=== PATIENT | male | born 1940 | race Caucasian/White ===

== ENCOUNTER 2024-07-22 10:46 | Outpatient (AMB) | payer OTHER, SELFPAY ==
--- NOTE | 2024-07-22 10:47 | AM.OFFWIN_ITS ---
Intake Vital Signs 07/22/24 10:51 BP 118/74 Blood Pressure Location Rt brachial Position Sitting Pulse 76 Pulse Source Pulse Oximeter Pulse Oximetry (%) 98 Oxygen Delivery Method Room Air Intake Visit Reasons: [employer]ENDANT Pain in rt abdomen radiating to back Intake Note: Patient here for right upper quad pain that has been present for a few weeks ago, he did mention he had a fall but is unsure if its related. 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 Patient states following his TAVR procedure he had a fall at home on July 09. Patient was brought to [facility] emergency department and was observed for approximately 24 hours secondary to a head injury. Patient states he had a chest x-ray with no abnormal findings at that time. On approximately July 11 the patient noted pain in the right upper quadrant of his abdomen. He denies having any fevers, chills, chest pain, shortness of breath, postprandial pain, nausea, vomiting, dark or bloody stools. Patient is not on any blood thinning medications. Patient has been taking one Aleve every evening for the past 3 nights. Patient states that coughing and carrying heavy items makes his pain worse. [facility] Social History (System 09/17/23 @ 12:17 by Tamy Sinclair) Patient Tobacco Use Status: Never used Tobacco Review of Systems Const All systems reviewed & are unremarkable except as noted in HPI and below Eyes Reports no additional complaints ENT Reports no additional complaints Card Reports no additional complaints Resp Reports no additional complaints and Reports pain with cough GI Reports no additional complaints, Reports abdominal pain (RUQ), Denies change in bowel habits, Denies constipation, Denies dyspepsia, Denies heartburn, Denies diarrhea, Denies loose stools and Denies vomiting Reports no additional complaints Musc Reports no additional complaints Skin/Breast Reports system reviewed and no additional complaints, except as documented Neuro Reports no additional complaints Psych Reports no additional complaints Endo Reports no additional complaints Brad/Lymph Reports no additional complaints Aller/Immun Reports no additional complaints Physical Exam Const General: cooperative, healthy appearing, comfortable, no acute distress, well developed, alert, awake and Physically active; No lethargic Nutritional Appearance: well nourished Orientation/consciousness: patient oriented x3 and No lethargic Limitations: no limitations Resp Effort & Inspection: normal respiratory effort, able to speak in complete sentences, no audible wheezes, no cough and no respiratory distress Auscultation: clear to auscultation bilaterally Cardio Rate: regular rate Rhythm: regular rhythm GI Inspection: Yes normal to inspection, Yes abdominal wall ecchymosis (lower abdomen), No Abdominal wall edema, No distended and No visible herniation Palpation (GI): Soft to palpation, Tenderness to palpation present (GI) in the RUQ (mild guarding, no rebound tenderness); not periumbilically and not suprapubicly and no hernias Auscultation: normal bowel sounds Back/Spine/Pelvis Other: No pain to palpation of the sternum or right lateral ribs. Skin General skin exam: no rashes or lesions noted Neuro General: patient oriented x3 Psych Appearance: grossly normal Mental Status: mental status grossly normal Insight: Good insight present (Psych) Judgement: Good judgement present (Psych) Assessment & Plan Assessment & Plan (1) Abdominal muscle pain: Comment: Given this patient's history coupled with his examination there is no clinical concern for cholelithiasis or cholecystitis. Patient's pain is muscular in nature, likely related to his fall on July 09 and no further imaging is warranted at this time. Code(s): M79.18 - Myalgia, other site Plan: Naprosyn b.i.d., methocarbamol TID prn. Patient will follow up with his primary care provider as needed and he has cardiac follow up scheduled in 1 week. Medications: New methocarbamol 750 mg PO Q8H 30 tabs 0RF naproxen (Naprosyn) 500 mg PO BID 20 tabs 0RF Coding Level of Care Code Est Pt Level 3 (83512) Diagnoses Abdominal muscle pain M79.18 Time Spent (min) 25
[2024-07-22 10:51] VITALS: BP 118/74; PULSE 76; O2SAT 98
--- OUTSIDE RECORDS SUMMARY | 2024-07-22 10:53 | XMS_ITS | Continuity of Care Document ---
Author Organization [facility] Address [address] [place] [id number] Care Team Providers Care [employer] Name Role Phone Nish Lin Primary Care Physician ( [phone] Encounter [facility] Date(s): 06/08/24 - 07/08/24 [facility] [address] [place] [id number] Encounter Type: Triage Allergies, Adverse Reactions, Alerts No Known Allergies Immunizations Given and Recorded Vaccine Date Status Refusal Reason FluLaval (oldterm) 1 05/29/09 Given Influenza Inactive (IM) (oldterm) 05/16/08 Given Pneumococcal Vaccine (oldterm) 04/22/06 Given tetanus-diphtheria toxoids (Td) 04/22/06 Given 1Admin Note: given w/o incident INFO SHEET GIVEN Medications Aspirin = 81 mg, By Mouth, Daily, 0 Refills, 04/22/06 2:07:26 PM EDT Start Date: 04/22/06 Status: Ordered Repeat number: 1 atorvastatin 40 mg oral tablet 1 tablet = 40 mg, By Mouth, Daily, 0 Refills, Maintenance, 04/05/24 7:51:00 PM EDT, Partial fill upon patient request if the prescription is for a schedule II opioid drug. Start Date: 04/05/24 Status: Ordered Repeat number: 1 metoprolol 25 mg oral tablet, extended release 25 mg, 1, tablet, By Mouth, Daily, Refills 0, Maintenance, 04/05/24 7:51:00 PM EDT, Partial fill upon patient request if the prescription is for a schedule II opioid drug. Start Date: 04/05/24 Status: Ordered Repeat number: 1 omeprazole 20 mg oral enteric coated capsule 1 capsule = 20 mg, By Mouth, Daily, # 90 tablet, 3 Refills, 05/29/09 10:21:24 AM EDT Start Date: 05/29/09 Stop Date: 05/24/10 Status: Ordered Quantity: 90.0 Unit: tablet Repeat number: 4 Paxil 40 mg oral tablet 40 mg, 1, tablet, By Mouth, Daily, Refills 0, Maintenance, 04/05/24 7:51:00 PM EDT, Partial fill upon patient request if the prescription is for a schedule II opioid drug. Start Date: 04/05/24 Status: Ordered Repeat number: 1 Problem List Condition Confirmation Course Effective Dates Status H ealth Status Informant Anxiety Confirmed Active Gastro-esophageal reflux disease Confirmed Active Glucose intolerance Confirmed 11/19/06 Active Hyperlipidemia Confirmed Active Non-bacterial prostatitis Confirmed Active Obese class I Confirmed Active Aortic stenosis, severe Confirmed Active Tendonitis calcific/bursitis of left shoulder Confirmed Active Vasectomy Confirmed Active Social History Social History Type Response Smoking Status Never (less than 100 in lifetime) entered on: 05/20/24 Sex Sex Representation Male (finding) Patient Care team information Care Team Personnel Name: Roselyn Colbert RN Position: S RN Member Role: Primary Care Nurse Name: Lexx Alcantar RN Position: S RN Member Role: Primary Care Nurse Name: Nish Lin Position: Reference Physician Member Role: PCP Address: [address] [place] [address] Telecom: Name: Elizabeth Julian RN Position: S RN Member Role: Primary Care Nurse Care Team Related Persons Name: SLY SPRINGER Insurance Providers Guarantor name: MARLENA SPRINGER [facility] Information #: 1 Payer: [facility] [employer] Member Number: NA Policy Number: NA Group Number: NA
--- OUTSIDE RECORDS SUMMARY | 2024-07-22 10:53 | XMS_ITS | Continuity of Care Document ---
Author Organization [facility] ter Address [address] [place] [id number]- Care Team Providers Care Drag Down Name Role Phone Nish Lin Primary Care Physician En[place] [facility] [place]): 07/04/24 - 07/05/[address] [address]- Discharge Disposition: A-D/C Home Attending Physician: Salomon Suarez MD Admitting Physician: Salomon Suarez MD Referring Physician: Neftaly Dias MD Encounter Type: Disch IP Allergies, Adverse Reactions, Alerts No Known Allergies [...] left shoulder Confirmed Active Vasectomy Confirmed Active Results Radiology Reports * Exam Date Time Procedure Performing Provider Status 07/05/24 6:19 AM Chest Portable Kwadwo Medrano ( Verified) Notes: (Chest Portable) Reason For Exam: S/P TAVR;Postop RESULT: Chest Portable Examination: Portable chest performed on 07/05/2024. History: Status post tavr. Findings: A frontal view of the chest is submitted in comparison to a prior study dated 07/04/2024. Transvenous pacer has been removed. The cardiac silhouette is within normal limits for size. Aorticvalve is noted. The lungs are clear. The osseous structures are unremarkable. IMPRESSION: There is no acute cardiopulmonary disease. WSN: [id number] Ordering Physician: Milton Bernal Dictated By: Kita Montero MD Dictated Date/Time: 07/05/24 9:26 am Reviewed By: Kita Montero MD Signed By: Kita Montero MD Signed Date/Time: 07/05/24 9:26 am Transcribed By: MARLENY Transcribed Date/Time: 07/05/24 9:23 am * Exam Date Time Procedure Performing Provider Status 07/04/24 10:47 AM Chest Portable Cecilia Webber (Verified) Notes: (Chest Portable) Reason For Exam: S/P TAVR;Postop RESULT: Chest Portable Chest Portable Reason: Postop; S P TAVR; Clinical Question(s): Cardiac Tamponade; COMPARISON: CTA TAVR-06/13/2024. FINDINGS: LINES AND TUBES: Inferior approach temporary pacer wire noted. LUNGS AND PLEURA: Mildly low lung volumes with basilar atelectasis. Lungs are otherwise clear with no consolidation. No pleural effusion. No pneumothorax. HEART, MEDIASTINUM AND KANDIS: Heart is normal in size. Aorta is mildly calcified. Status post TAVR. BONES AND SOFT TISSUES: No acute abnormality. IMPRESSION: Expected postoperative appearance following TAVR. I have personally reviewed the images and I agree with this report. WSN: [id number] Ordering Physician: Milton Bernal Dictated By: Hakan Major MD Dictated Date/Time: 07/04/24 11:26 a Reviewed By: Mykel Amezquita MD, V Signed By: Mykel Amezquita MD, V Signed Date/Time: 07/04/24 11:31 am Transcribed By: MARLENY Transcribed Date/Time: 07/04/24 11:22 am Vital Signs Most recent to oldest [Reference Range]: 1 2 3 Height 170.1 cm (07/05/24 7:36 AM) 170.1 cm (07/05/24 4:44 AM) 170.1 cm (07/05/24 12:09 AM) Weight 87.4 kg (07/05/24 6:28 AM) 87.4 kg (07/05/24 4:52 AM) 86.9 kg (07/04/24 1:21 PM) Oxygen Saturation [94-100 %] 97 % (07/05/24 7:36 AM) 96 % (07/05/24 4:44 AM) 97 % (07/05/24 12:09 AM) Pulse Rate [55-90 bpm] 81 bpm (07/05/24 7:36 AM) 75 bpm (07/05/24 4:44 AM) 75 bpm (07/05/24 12:09 AM) Body Mass Index [18.5-24.99 kg/m2] 30.03 kg/m2 *>HHI* (07/04/24 1:21 PM) 30.03 kg/m2 *>HHI* (07/04/24 1:14 PM) 30.07 kg/m2 *>HHI* (07/04/24 7:00 AM) Blood Pressure [90-138/55-84 mm Hg] 124/57mm Hg (07/05/24 7:36 AM) 109/50mm Hg (07/05/24 4:44 AM) 101/53mm Hg (07/05/24 12:09 AM) Respiratory Rate [16-30 br/min] 18 br/min (07/05/24 7:36 AM) 18 br/min (07/05/24 4:44 AM) 18 br/min (07/05/24 12:09 AM) Temperature [96.8-100.4 DegF] 99.1 DegF (07/05/24 7:36 AM) 99.7 DegF (07/05/24 4:44 AM) 97.4 DegF (07/05/24 12:09 AM) Mode of Delivery (Oxygen) Face shield (07/05/24 7:36 AM) Room air (07/05/24 4:44 AM) Room air (07/05/24 12:09 AM) Blood pressure sites Arm, left (07/05/24 7:36 AM) Arm, left (07/05/24 4:44 AM) Arm, left (07/05/24 12:09 AM) Temperature Route Oral (07/05/24 7:36 AM) Oral (07/05/24 4:44 AM) Oral (07/05/24 12:09 AM) Dry Weight 85.729 kg (07/04/24 1:21 PM) 87 kg (07/04/24 7:00 AM) Weight Obtained Via Bed scale (07/05/24 6:28 AM) Bed scale (07/05/24 4:52 AM) Social History Social History Type Response Smoking Status Never (less than 100 in lifetime) entered on: 05/20/24 Sex Sex Representation Male (finding) Note * José Miguel VARGAS, Desirae Guzman: PERFORM, SIGN, VERIFY Event Display: Cardiac Rehab Note Authored Date: [id number] Patient: MARLENA PALM Age: 83 years Sex: Male : 1940 Associated Diagnoses: None Author: José Miguel VARGAS, Desirae Guzman Pre-exercise Vitals Vital Signs Comment: Reviewed in [facility]. Pre-exercise Physical Examination Neurologic: alert & oriented. Activity Symptoms with Cardiac Rehab Symptoms: No exertional symptoms. Activity Ambulate: independent. Patient Education Education: Family present, Post procedure guidelines. Education topic Teachback comprehension 75% Topic: Role of exercise, Home activity guidelines/limits. Recommendation and Plan Outpatient follow up recommended: [facility]. Cardiac Rehab: Will sign off at this time. * Marlys Collins RN: PERFORM Event Display: Discharge/Transfer Note Hospital Authored Date: [id number] Nursing Discharge Note Entered On: 07/05/2024 10:58 EST Performed On: 07/05/2024 10:58 EST by Marlys Collins RN Nursing Discharge Note 2 Discharge Time : 07/05/2024 10:56 EST Discharge Level of Care at Discharge : Home/Fdc/Foster Care Patient Left Unit Via : Wheelchair Patient Accompanied Off Unit with : Responsible adult DC Instructions Provided & Signed by Pt : Yes Patient Understands D/C Instructions : Yes Patient Instructions Discharge Signed : Yes Did Pt have Specialty Bed or Wound Vac : No Marlys Collins RN - 07/05/2024 10:58 EST * Andreina SANTANA, Mariza Segura: PERFORM, MODIFY Event Display: Discharge/Transfer Note Hospital Authored Date: [id number] Patient: ??MARLENA PALM ? Age:??83 Years?Sex:??Male?:??1940?? Patient Information Discharge Location: Primary Care Physician: Nish Lin Admit Date/Time: 07/04/2024 06:40 Discharge Disposition Discharge Disposition: Home: No Services Discharge Diagnosis Anxiety (F41.9) Hyperlipidemia (E78.5) Obese class I (Z68.30) _ Discharge Medications Aspirin?81?Milligram?By Mouth?Daily Atorvastatin (atorvastatin 40 mg oral tablet)?1?tab(s)?40?Milligram?By Mouth?Daily Metoprolol (metoprolol 25 mg oral tablet, extended release)?25?Milligram?1?tablet?ByMouth?Daily Omeprazole (omeprazole 20 mg oral enteric coated capsule)?1?capsule?20?Milligram?By Mouth?Daily?for 90?Days Paroxetine (Paxil 40 mg oral tablet)?40?Milligram?1?tablet?By Mouth?Daily ? Allergies Allergies ?(Active and Proposed Allergies Only) NKA? (Severity: Unknown severity, Onset: Unknown) ? PCP Follow-Up/Heads-Up Patient is status post TAVR and will need aspirin 81 mg daily indefinitely. ?? Hospital Course Mr. Palm??is an 83-year-old male with a known history of aortic stenosis, who had been developing episodic symptoms of fatigue with exertion, found to have aortic stenosis and is now status post TAVR (07/04/24, Dr. Dias and Dr. Suarez).? Objective ?? PROCEDURE PERFORMED:??Right transfemoral TAVR with a 29 Medtronic Evolut FX plus. SURGEON:??Salomon Suarez MD CO-SURGEON:??Neftaly Dias MD ?? Postoperatively, there are no reports of pain, shortness of breath or palpitations. Patient is eating diet by mouth and independently ambulatory. Incision sites are clean, dry and soft without evidence of hematoma.?? Distal pulses are palpable.? S/P TAVR: EKG, Echocardiogram and CXR have been reviewed.?? Patient has an old left bundle on EKG, will not discharge with Zio monitor. AC: Aspirin ?? Will need follow up for echocardiogram in 30 days,??CBC and BMP in??1 week and will follow up with interventionalist and technology intern.?? Patient will need to contact these offices to make and confirm appointment date and time. ? Vital Signs?? Temperature: 99.1 DegF (07/05/24 07:36:00) Temperature Route: Oral (07/05/24 07:36:00) Pulse Rate: 81 bpm (07/05/24 07:36:00) Heart Rate Monitored: 64 bpm (07/04/24 13:07:38) Respiratory Rate: 18 br/min (07/05/24 07:36:00) Systolic Blood Pressure: 124 mm Hg (07/05/24 07:36:00) Diastolic Blood Pressure: 57 mm Hg (07/05/24 07:36:00) Blood pressure sites: Arm, left (07/05/24 07:36:00) Mean Arterial Pressure: 79 mm Hg (07/05/24 07:36:00) Pulse Pressure: 67 mm Hg (07/05/24 07:36:00) Oxygen Saturation: 97 % (07/05/24 07:36:00) Mode of Delivery (Oxygen): Face shield (07/05/24 07:36:00) Early Warning Score: 3 (07/05/24 07:36:56) ? . Physical Exam PHYSICAL EXAM AT DISCHARGE: Constitutional: Elderly, but well appearing Cardiovascular: S1, S1 heard Respiratory: Clear to auscultation, on room air Gastrointestinal: Soft, nontender Integumentary: Inguinal sites clean, dry, soft, no evidence of hematoma.?? Extremities: No edema present, distal pulses palpable.?? Pending Results BUN ordered on 07/05/2024 CBC w/ Differential ordered on 07/05/2024 Creatinine ordered on 07/05/2024 Electrolytes ordered on 07/05/2024 Magnesium Level ordered on 07/05/2024 RBCs for Surgery ordered on 07/04/2024 Type and Screen ordered on 07/05/2024 XR Chest Portable ordered on 07/05/2024 Patient Education Titles WebMD Ignite Patient Education - TAVR Discharge Instructions?? WebMD Ignite Patient Education - Having a Transcatheter Aortic Valve Replacement (TAVR)?? Follow-Up Appointments Added Follow Up ?Time Frame ?Comments Kilo MATTHEW , Nish Ferro?4 to 5 weeks Neftaly Dias MD?09/09/2024 14:30 ECHO?08/31/2024 15:30 Cycz ACNMike, Len?07/28/2024 12:40 Home Health Face to Face ^HomeHealthFTF Results Discharge Labs BLOOD BANK Blood Type O Positive ()?? 07/04/2024 19:07 Antibody Screen Negative ()?? 07/04/2024 19:07 RBC Unit ID [id number] ()?? 07/04/2024 06:49 RBC Available RE ()?? 07/04/2024 06:49 ?? BLOOD COUNT & DIFF WBC 9.4 k/mm3 ()?? 07/05/2024 00:39 RBC 3.59 m/mm3 (Low)?? 07/05/2024 00:39 Hgb 11.3 Gm/dL (Low)?? 07/05/2024 00:39 Hct 33.0 % (Low)?? 07/05/2024 00:39 MCV 91.9 femtoliters ()?? 07/05/2024 00:39 MCH 31.5 pg ()?? 07/05/2024 00:39 MCHC 34.2 Gm/dL ()?? 07/05/2024 00:39 Platelet Count 108 k/mm3 (Low)?? 07/05/2024 00:39 RDW-SD 43.4 femtoliters ()?? 07/05/2024 00:39 MPV 10.1 femtoliters ()?? 07/05/2024 00:39 Nucleated RBC (Automated) 0.0 #/100 WBC'S ()?? 07/05/2024 00:39 Abs. NRBC 0.0 k/mm3 ()?? 07/05/2024 00:39 Abs. Neut 7.1 k/mm3 (High)?? 07/05/2024 00:39 Abs. Lymph 1.4 k/mm3 ()?? 07/05/2024 00:39 Abs. Sioux 0.9 k/mm3 ()?? 07/05/2024 00:39 Abs. Eo 0.0 k/mm3 ()?? 07/05/2024 00:39 Abs. Baso 0.0 k/mm3 ()?? 07/05/2024 00:39 Neut % 75.2 % ()?? 07/05/2024 00:39 Lymph % 14.6 % (Low)?? 07/05/2024 00:39 Sioux % 9.4 % ()?? 07/05/2024 00:39 Eos % 0.3 % ()?? 07/05/2024 00:39 Baso % 0.2 % ()?? 07/05/2024 00:39 Imm Gran 0.3 % ()?? 07/05/2024 00:39 Abs. Imm Gran 0.0 k/mm3 ()?? 07/05/2024 00:39 ?? CHEM GENERAL Sodium 136 mmol/L ()?? 07/05/2024 00:39 Potassium 3.9 mmol/L ()?? 07/05/2024 00:39 Chloride 100 mmol/L ()?? 07/05/2024 00:39 Bicarbonate Level 24 mmol/L ()?? 07/05/2024 00:39 Anion Gap 12 ()?? 07/05/2024 00:39 Glucose, POC 141 mg/dL (High)?? 07/04/2024 09:34 BUN 30 mg/dL (High)?? 07/05/2024 00:39 Creatinine-Blood 0.75 mg/dL ()?? 07/05/2024 00:39 Estimated GFR Creatinine 90 ML/MIN/1.73 M2 ()?? 07/05/2024 00:39 Magnesium 2.0 mg/dL ()?? 07/05/2024 00:39 ?? URINE OTHER Est Creatinine Clearance 69.70 mL/min ()?? 07/05/2024 02:25 ? 34??minutes spent on discharge * Dennis VARGAS, Marlys: PERFORM Event Display: Patient Education/Instruction Authored Date: [id number] Inpatient Adult Discharge Instructions. [address] [address] Name: MARLENA PALM : 1940?? Visit: 07/04/2024 06:40?? Current Date: 07/05/2024 09:05 ?? Account: [id number]?? Inpatient Adult Discharge Instructions We would like to thank you for allowing us to assist you with your healthcare needs. The following includes patient education materials and information regarding your injury/illness. Our entire staffstrives to provide an excellent experience for our patients and their families. PLEASE ENSURE YOU FOLLOW-UP PER THE INSTRUCTIONS BELOW! ?? YOUR OPINION IS IMPORTANT TO US! Please complete the survey you may receive by mail or email. Your feedback will be used to make improvements to the healthcare experiences of our patients and their families. Surveys are administered by [employer] ?? If further treatment with your primary care physician or another doctor is recommended, it is important for you to keep the appointment. Call your primary care physician or return to the Emergency Department immediately if your condition worsens, fails to improve, or new symptoms develop. If you need to find a doctor, you can call [facility] ExtendEvent Link for a referral at [phone] or toll free at [phone] or log in to [email or web address].. ?? [facility], in keeping with [facility] guidance, no longer requires face masks for staff, patientsor visitors in most situations. Similiar to time spent indoors at other locations, there is the chance that you were exposed to repiratory viruses during your time with us (such as flu or COVID-19). If you develop symptoms concerning for a viral respiratory infection, please seek testing (and treatment if indicated) from your medical provider or home test kit. ?? You can view and manage your care through the patient portal or by using a health care lindsay of your choosing. [employer] is a website that allows you to securely view your medical information including your hospital discharge summary, office visit summaries, medications and follow-up visits. You can also request appointments, renew medications, and request access to your medical information using a health care lindsay of your choosing, or just ask a question. You can enroll at [email or web address] or register during your next office visit. You have been discharged from [facility], Patient Care Unit: M6??. If you have any questions regarding these instructions, including results of studies pending, afteryou leave, please call us and we will be happy to assist you 02/03. [facility] Your Care Team Attending Physician Salomon Suarez MD?? Consulting Providers Salomon Suarez MD?? Discharging Providers Andreina SANTANA, Mariza Segura Your Diagnosis Anxiety Hyperlipidemia Obese class I Tests Performed Below is a partial list of the tests performed during your hospitalization. You may have had other tests and procedures not included in this list. Please discuss all test results with your provider. BUN CBC w/ Differential Creatinine Electrolytes GLUCOSE POC Hgb + Hct Magnesium Level XR Chest Portable BUN?? CBC w/ Differential?? Creatinine?? Electrolytes?? Glucose POC?? Hgb + Hct?? Magnesium Level?? RBCs for Surgery?? Type and Screen?? Chest Portable (XR Chest Portable)?? Primary Care Provider Nish Lin? Advance Directive Health Care Proxy on File No Discharge Vitals Temperature: 99.1 DegF Height: 170.1 cm Pulse Rate: 81 bpm Weight: 87.4 kg Respiratory Rate: 18 br/min Body Mass Index:??30.03 kg/m2??Critical Systolic Blood Pressure: 124 mm Hg Body surface area: 2.03 Diastolic Blood Pressure: 57 mm Hg ?? Oxygen Saturation: 97 % ?? Studies Pending All studies ordered during this hospital stay have been completed unless listed below. Please discuss all pending results with your provider listed above in these instructions. ?? BUN?? CBC w/ Differential?? Creatinine?? Electrolytes?? Magnesium Level?? RBCs for Surgery?? Type and Screen?? Chest Portable (XR Chest Portable)?? What to do next Instructions From Your Doctor ?? Orders?? after echocardiogram, ??07/05/24 8:49:00 EST?? You Need to Schedule the Following Appointments Follow Up with??Arun WOODS, Neftaly When:??09/09/2024 02:30 PM EST Where: [address] [facility] [place] [address]- Follow Up with??ECHO When:??08/31/2024 03:30 PM EST Where: [address], [address] [place], [place] Follow Up with??Len Schultz When:??07/28/2024 12:40 PM EST Where: [address], [address] [facility] [place] [address]- Follow Up with??Nish Lin When:??Within 4 to 5 weeks Where: [address] [place] [address]- Discharge Medications MARLENA PALM :1940 Visit Date:07/04/2024 Medications: Please continue your medications until treatment is completed or stopped by your provider. Medications not listed below should be discontinued. Discuss any questions related to medications with your provider. What How Much When Instructions Next Dose Unchanged Aspirin 81 Milligram Oral Daily Tomorrow Unchanged Atorvastatin (atorvastatin 40 mg oral tablet) 1 tab(s) Oral Daily Tomorrow Unchanged Metoprolol (metoprolol 25 mg oral tablet, extended release) 1 tab(s) Oral Daily Tomorrow Unchanged Omeprazole (omeprazole 20 mg oral enteric coated capsule) 1 capsule Oral Daily Duration: 90 Days Tomorrow Unchanged Paroxetine (Paxil 40 mg oral tablet) 1 tab(s) Oral Daily Tomorrow Prescription Given During Visit No new medications prescribed at time of discharge.?? Laboratory Results Below is a partial list of the most recent Laboratory test results done prior to this discharge. You may have had other tests and procedures not included in this list. Please discuss all test resultswith your provider. Antibody Screen - Negative (07/04/2024) Blood Type - O Positive (07/04/2024) Est Creatinine Clearance - 69.70 mL/min (07/05/2024) RBC Available - RE (07/04/2024) RBC Unit ID - [id number] (07/04/2024) BUN (07/05/2024) ???BUN - 30 mg/dL CBC w/ Differential (07/05/2024) ???WBC - 9.4 k/mm3???RBC - 3.59 m/mm3???Hgb - 11.3 Gm/dL???Hct - 33.0 %???MCV - 91.9 femtoliters???MCH - 31.5 pg???MCHC - 34.2 Gm/dL???Platelet Count - 108 k/mm3???RDW-SD - 43.4 femtoliters???MPV - 10.1 femtoliters???Nucleated RBC (Automated) - 0.0 #/100 WBC'S???Abs. NRBC - 0.0 k/mm3???Abs. Neut - 7.1 k/mm3???Abs. Lymph - 1.4 k/mm3???Abs. Sioux - 0.9 k/mm3???Abs. Eo - 0.0 k/mm3???Abs. Baso - 0.0 k/mm3???Neut % - 75.2 %???Lymph % - 14.6 %???Sioux % - 9.4 %???Eos % - 0.3 %???Baso % - 0.2 %???Imm Gran - 0.3 %???Abs. Imm Gran - 0.0 k/mm3 Creatinine (07/05/2024) ???Creatinine-Blood - 0.75 mg/dL???Estimated GFR Creatinine - 90 ML/MIN/1.73 M2 Electrolytes (07/05/2024) ???Sodium - 136 mmol/L???Potassium - 3.9 mmol/L???Chloride - 100 mmol/L???Bicarbonate Level - 24 mmol/L???Anion Gap - 12 GLUCOSE POC (07/04/2024) ???Glucose, POC - 141 mg/dL Hgb + Hct (07/04/2024) ???Hgb - 13.2 Gm/dL???Hct - 39.2 % Magnesium Level (07/05/2024) ???Magnesium - 2.0 mg/dL You will be contacted within 72 hours with your results. Allergies (NKA means No Known Allergies) NKA Problems Active Problems??(9) Anxiety?? Aortic stenosis, severe?? Gastro-esophageal reflux disease?? Glucose intolerance?? Hyperlipidemia?? Non-bacterial prostatitis?? Obese class I?? Tendonitis ??calcific/bursitis of left shoulder?? Vasectomy?? Education Materials Below is the list of Educational Leaflet Providered with your Discharge Instructions. WebMD Ignite Patient Education - TAVR Discharge Instructions?? WebMD Ignite Patient Education - Having a Transcatheter Aortic Valve Replacement (TAVR)?? Valuables and Belongings I fully understand and agree that [facility] accepts no responsibility for all my personal property including clothing, toilet articles, radios, jewelry, dentures, hearing aids, rings, money, or any other property that is in my possession or is brought to me after admission. I understand certain valuables may be placed in a hospital safe for a short period of time. I understand that the hospital is not liable for loss or damage due to accident, fire, or other natural occurrence while said property is in the safe. I accept full responsibility for any personal property that I keep with me, and will not hold the hospital responsible in case of loss or disappearance. I acknowledge that i have been encouraged to send valuables and belongings home. ?? Possessions released to: patient on transfer to M6--bed 9 Date for Pt to Sign Valuables/Belongings: 07/04/24 13:19:00 ?? Other Discharge Information ? Pulmonary Rehab Status?? Pulmonary Rehab Discharge Status?? Respiratory Rate: 18 br/min ? Common Emergency Awareness Tips IS IT A STROKE? Act FAST and Check for these signs: FACE Does the face look uneven? ARM Does one arm drift down? SPEECH Does their speech sound strange? TIME Call at any sign of stroke ?? Heart Attack Signs Chest discomfort: Most heart attacks involve discomfort in the center of the chest and lasts more than a few minutes, or goes away and comes back. It can feel like uncomfortable pressure, squeezing, fullness or pain. Discomfort in upper body: Symptoms can include pain or discomfort in one or both arms, back, neck, jaw or stomach. Shortness of breath: With or without discomfort. Other signs: Breaking out in a cold sweat, nausea, or lightheaded. Remember, MINUTES DO MATTER. If you experience any of these heart attack warning signs, call to get immediate medical attention! ?? Smoking can increase your chances of developing chronic health problems and can cause harmful effects to other family members in your house. If you smoke, you are strongly encouraged to quit. Please call [facility] ExtendEvent Link at [phone] or [phone]) or log in to [email or web address] for referrals to smoking cessation programs. ?? 861 Suicide & Crisis Lifeline is available 02/03 if you or someone you know needs to find a reason to keep living. By calling 301 you'll be connected to a skilled, trained counselor at a crisis center in your area. INPATIENT DISCHARGE INSTRUCTIONS SIGNATURE PAGE MARLENA PAML Location:[facility] Registration Date and Time:07/04/2024 06:40 EST Primary Care Physician: Nish Lin, Attending Physician: Salomon Suarez MD, I MARLENA PALM, have received the above patient education materials/instructions and have verbalized understanding. If ambulance or transport services are being used I further acknowledge being given a choice of service. ?? If you need to contact me, please call me at this number: . Patient/Senior Db2 Systems Programmer Name: Patient/Senior Db2 Systems Programmer Signature: Relationship to Patient: Witness Name/Signature: Date: * José Miguel VARGAS, Desirae Guzman: PERFORM, SIGN, VERIFY Event Display: Patient Education Handout Authored Date: [id number] * Andreina SANTANA, Mariza Segura: PERFORM Event Display: Patient Education Leaflets Authored Date: TAVR Discharge Instructions ?? 298 TAVR Discharge Instructions Call 911 if: ??? If you develop a new onset of confusion, weakness or tingling on one side, numbness, slurred speech or difficulty speaking, loss of vision ??? If you develop numbness, tingling, loss of sensation, and/or coolness to your arms or legs. ??? If you develop chest pain or discomfort that is not relieved with rest. ??? If uncontrolled bleeding occurs, hold pressure to the site and call 911. ?? Call your technology intern office if you experience any of the following: ??? Temperature of 101 or greater, chills, sweating ??? Any bleeding or swelling at the incision site or if a hard lump forms. ??? Any signs of infection at incision site including drainage, redness or tenderness, odor, or the edges of your procedure site are pulling apart or opening. ??? If you experience any new rash, cough, dizziness, or leg cramps. ??? Changes in breathing, chest pain, abnormal pain, dizziness, change in pulse, pulse rate or palpitations, nausea, vomiting. ??? You gain 2 pounds in one day or 5 pounds in 1 week. ?? Follow up: A follow up appointment should be made with your doctor. Follow up care is important; it is strongly encouraged for you to keep your appointment. You may have more than one appointment including one with the home organizer who performed your procedure and your technology intern. ??? Follow up appointments are generally scheduled at 2 weeks for an incision check, either with your primary technology intern or a member of our heart valve team. ??? Additional follow ups occur with the home organizer who performed your procedure within 4 to 6 weeks and then again at 1 year. ??? o An EKG, echocardiogram, and labs will also be obtained before these two follow up visits If you do not have an appointment scheduled already in your discharge packet, please call and make an appointment when you get home. If you have any questions, please call the office of the home organizer who performed your procedure. ?? Valve identification card: You will receive a permanent card in the mail in 8-10 weeks. This identification card should be carried with you at all times. ?? If you go home with a 28 day monitor after your procedure: ??? The monitor will be applied to you prior to your discharge. ??? Each monitor is good for 14 days, a new monitor will be sent to your home address on file at day 12 ??? If you have any specific questions or concerns in regard to your monitor, please call the company: o Veunremberto: ?? Bathing: ??? You can take a shower using a mild soap after you are discharged from the hospital. ??? Avoid soaking in water such as tub baths, swimming pools or hot tubs until you are cleared by your doctor to do so. ?? Incision Care: ??? Look at your procedure site every day until it is completely healed. o Check your procedure site daily for redness, odor, or drainage/bleeding. o You may have a small bump where the catheter was put in, if the bump gets larger, please notify your technology intern. o You may see bruising at the procedure sites but this is normal. ??? It is important to keep incision sites clean and dry. o Avoid usi ng any perfumed soaps, lotions, creams, oils or ointments as these may irritate the site and could put you at risk for infection. ?? Activity: ??? Review the written materials given to you by the Cardiac Rehabilitation staff for your specificexercise program. ??? No heavy lifting over 10 pounds (gallon of milk) for 1 week. ??? Gradually increase your activity. Remember to alternate periods of activity with periods of rest. ??? It is important to continue to do the coughing and deep breathing exercises to help prevent breathing complications. ??? Take your temperature every day for the next 3-5 days. ??? Weigh yourself at the same time every morning. ?? Cardiac Rehabilitation: Cardiac rehabilitation is an outpatient medically supervised exercise program. Participating in a cardiac rehabilitation program is highly encouraged, as this is essential to your recovery process. ??? Cardiac rehabilitation typically starts 2 to 3 weeks after discharge. ??? If attending [facility]???s program, you should leave the hospital with an orientation appointment already arranged. A cardiac rehab facility other than [facility] may require a referral from your technology intern. ?? Driving: ??? You should not drive for 2-3 days after you are discharged from the hospital. ?? Dental Cleaning/Procedures post TAVR ??? You will need an antibiotic prior to future dental cleanings and procedures to prevent against bacteria from attaching to your new heart valve (This is calledinfective endocarditis). ??? If you have developed any signs and/or symptoms of endocarditis pleasecall your technology intern. ??? Symptoms of endocarditis include : ?? o Flu-like symptoms, such as fever, chills, night sweats tiredness, muscle and joint aches, and headache. o Trouble breathing, cough,nausea and vomiting. o Swelling of the feet, legs, and belly. ?? * Andreina SANTANA, Mariza Segura: PERFORM Event Display: Patient Education Leaflets Authored Date: [id number] Having a Transcatheter Aortic Valve Replacement (TAVR) ?? 10302 Having a Transcatheter Aortic Valve Replacement (TAVR) Your healthcare provider recommends that you have a transcatheter aortic heart valve replacement (TAVR). This is a surgery to replace a diseased aortic valve with a new tissue or biological valve. TAVR is done by putting a thin, flexible tube (catheter) through a blood vessel in your groin, or through a small cut (incision) under the collarbone. Sometimes this procedure needs an incision in between your ribs. The catheter is used to deliver an artificial valve to your heart. The TAVR is a minimally invasive procedure that is an alternative to open heart surgery. Be sure to talk with your healthcare provider about any questions or concerns you have before the procedure. The procedure often takes 2 to 3 hours. You???ll likely remain in the hospital for 1 to 3 days. Here???s what to expect before, during, and after the procedure. Before the procedure Before your procedure, you will have a physical exam and tests. These tests include X-rays, CT scans, lung tests, and blood tests. You will have an echocardiogram to check your aortic valve. This is a test that uses an ultrasound. It makes sound waves to create images of your heart. You may also have a cardiac catheterization. This will tell your healthcare provider more about your heart. It shows how blood is flowing through your arteries and about the pressures inside your heart and lungs. Before the procedure you will also need to: ??? Tell your healthcare provider about all medicines you take. This includes [id number] medicines, vitamins, herbs, and other supplements. It also includes any blood thinners, such as warfarin or daily aspirin. You may need to stop taking some or all of them before your surgery. ??? Tell your healthcare provider if you???re allergic to any medicines, have had a reaction to anesthesia, or have a bleeding disorder. ??? Stop smoking. Ask your healthcare provider how soon before surgery you need to quit. ??? Follow any directions you are given for not eating or drinking before surgery. ??? Shower with special soap before the surgery if advised.??? Follow all other instructions that you are given. ?? During the procedure The TAVR procedure is less invasive than traditional aortic valve replacement surgery. The procedure is done in an operating room or a specially equipped catheterization lab. ??? Medical staff will put an IV (intravenous) line in your arm or hand. This supplies fluids and medicine. ??? To allow you to comfortably sleep during the surgery, you may be given general anesthesia. Or you may just be given medicine (sedation) to help you relax. ??? Staff places an arterial line into the artery in your wrist to keep track of blood pressure and take blood samples. ??? Staff might place a small probe into your throat. This is to do a transesophageal echocardiogram during the procedure. Some health centers may not need this. If they do, you will get general anesthesia. ??? You will be given antibiotics before the procedure to protect you from infection. You will also get an tibiotics after the procedure. ??? The healthcare provider will put a catheter in the femoral artery in the groin. If they are not able to put a catheter in the groin, they may place the catheter in an artery near the armpit or neck. They will guide the catheter through the artery and into your heart and to your aortic valve. The provider will put other catheters, from the neck, wrist, or the other leg, in your heart to take measurements and X-ray pictures during the procedure. ??? The providerwill put the new valve through the catheter to the heart on a collapsed balloon. ??? When the balloon is in the right place in the aortic valve area, the healthcare provider will inflate it. This puts the new valve in place. ??? The provider will take measurements and images to make sure your new valve works correctly. Then the catheters are removed. ??? The catheter is removed and your incision is closed. If your groin artery is too small, your healthcare provider may put the catheter through an artery near your armpit or neck. Or they may put the catheter through a cut under the collarbone or betweenyour ribs instead. ?? After the procedure You???ll be moved to a cardiac monitoring unit as you wake from the anesthesia. When you first wakeup, you may feel groggy, thirsty, or cold. These feelings won???t last long. You will likely have some IV lines and an arterial line in your body. These are to give you medicines and nutrition, and to measure your heart function. Medical staff members will carefully keep track of that function. Your condition often will be stable within the first 1 to 2 days. Your recovery will depend on how invasive your procedure is for your valve replacement. You will likely need to stay in the hospital for 1 to 3 days. If you???ve had the surgery done through your ribs, you may spend more time in the hospital than if you had the surgery done through your groin, armpit, or wrist. You???ll be encouraged to stand and walk, even if you feel tired. Walking helps your muscle strength, blood flow, and breathing. Your healthcare provider will let you know when you can go home. Have a family member or friend drive you home. ?? Last Reviewed Date: 2024 ?? [id number] The [employer]. All rights reserved. This information is not intended as a substitute for professional medical care. Always follow your healthcare professional's instructions. ?? * Event Display: Hemodynamic Procedure Report Authored Date: History and physical note * Aren Kelly MD: PERFORM Event Display: History and Physical Hospital Authored Date: Patient: ??MARLENA PALM ? Age:??83 Years?Sex:??Male?:??1940? SURGICAL HISTORY AND PHYSICAL ?? DATE:?? 07/04/2024 ? Chief Complaint Fatigue with exertion ?? History of Present Illness Marlena Palm is an 83-year-old white male??whose cardiovascular history is remarkable for aortic stenosis,??hypertension, hyperlipidemia, and carotid stenosis.?? Over the last 6??months, he has??been experiencing episodic??symptoms of??fatigue??with exertion. ??He denies symptoms of shortness of breath at rest,??dyspnea on exertion, chest pain, chest pressure,??lightheadedness, near-syncope or syncope.?? He currently has [place] heart association class I??symptoms of heart failure. ?? As a result of his progressive symptomatology, he underwent an echocardiogram??on 01/15/2024.?? This study demonstrated??normal left ventricular size and systolic function. ??There was mild concentric??left ventricular ventricular hypertrophy present.?? There were no regional wall motion abnormalities present. ??The left ventricular ejection fraction was measured at 60 to 65%.?? There was??grade??1-2 diastolic dysfunction present with increased left atrial pressures.?? The right ventricle was normal in size and function.?? The??[place] aortic valve was??trileaflet but there was diffuse??thickening present??with reduced excursion.?? The??peak gradient across the aortic valve was 76 mmHg while the mean gradient was 50 mmHg.?? The aortic valve area was calculated at??1.0 cm??.?? There was also evidence of mild 1+ aortic valve insufficiency.?? The mitral valve opened normally.?? There was mildmitral annular calcification present with thickened mitral valve leaflets. ??There was no evidence of??mitral valve stenosis and only trace mitral valve regurgitation. ?? On 04/05/2024, he underwent cardiac catheterization with coronary angiography.?? This study demonstrated??minimal??luminal??irregularities in the left main coronary artery,??a 30% stenosis in the proximal left anterior descending coronary artery,??and minimal??luminal irregularities in the circumflex coronary artery.?The right coronary artery was normal. ?? 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 ?? His past surgical history is remarkable for a tonsillectomy and a??lumbar laminectomy. ?? He is a lifelong non-smoker.?? He??was a??prior heavy drinker of alcohol but has not??used alcohol in the last 30 years. ?? He denies known drug allergies. ?? Due to his progressive symptomatology, and the finding of severe aortic valve stenosis on??echocardiography, he presents to cardiac surgery clinic today to review options for replacement of his aortic valve. ?? Review of Systems Cardiac: Symptoms of congestion: No Symptomatic hypotension: No Symptoms of ischemia: No Constitutional:?? Recent infection: No; no fever, no chills Unintentional weight loss/cachexia: No Respiratory: Symptomatic primary lung disease: No; No cough, No shortness of breath? All other systems are negative unless noted above. ?? Physical Exam ?Vitals & Measurements ?T:??97.9?F?? HR:??66??(Peripheral)?? RR:??16?? BP:??122/60?? SpO2:??98%?HT:??170.18??cm?? WT:??87??kg?? BMI:??30.04?? Cardiac: No jugular venous distension No peripheral edema?? Regular??heart??rhythm He??has equal but diminished 1+??carotid pulses bilaterally??with no carotid bruits. He??has??no??varicosities??or??leg edema. General Appearance:??Mildly obese??body habitus Eyes:??Non-icteric Pulmonary:??Normal respiratory effort. Clear to auscultation. No wheezing, rales or rhonchi Cardiac:??Regular rate and rhythm, II/ mid-to-late??systolic murmur heard best at the upper??right sternal border, no S3 or S4 present. Sternum is stable on palpation. No prior sternal incisions. Vascular:??1+ femoral pulses bilaterally Gastrointestinal:??Soft, non-tender, no obvious ascites Musculoskeletal:??No overt mechanical limitations on movement and mobility Skin:??Intact, no rashes Neurological:??Alert and oriented, no gross deficits Psychiatric:??Appropriate mood and affect? Assessment/Plan ?? Marlena Palm is an 83-year-old white male??who presents with a six??month history of??episodic symptoms of??fatigue with exertion.?? His workup, including an echocardiogram,??demonstrates the presence of severe aortic valve stenosis. ?? Based on his medical comorbidities, I have calculated his STS risk score for mortality??with sternotomy and open aortic valve replacement at 1.8%.?? Based on this finding, I presented to him??the option of sternotomy with open aortic valve replacement??and??the option of transcatheter aortic valve replacement.?? We had an extensive discussion in clinic today regarding both of these options.?? After this discussion, the patient wishes to pursue a transcatheter aortic valve replacement??as he does not wish to undergo sternotomy and open aortic valve replacement. ?? I have reviewed the planned procedure of transcatheter aortic valve replacement with the patient??preprocedure.?? I have also reviewed the potential complications of the procedure which include but are not limited to:??bleeding, infection,??arrhythmias, stroke,??myocardial infarction,??congestive heart failure,??heart block requiring pacemaker placement??and .?? He understands these risks and wishes to proceed??with transcatheter aortic valve replacement. ? Aren Kelly M.D. Problem List/Past Medical History Ongoing ?Anxiety ??Gastro-esophageal reflux disease ??Glucose intolerance ??Hyperlipidemia ??Non-bacterial prostatitis ??Obese class I ??Tendonitis calcific/bursitis of left shoulder ??Vasectomy ?? Medications ??Aspirin, 81 mg, By Mouth, Daily ??atorvastatin 40 mg oral tablet, 40 mg= 1 tablet, By Mouth, Daily ??metoprolol 25 mg oral tablet, extended release, 25 mg= 1 tablet, By Mouth, Daily ??omeprazole 20 mg oral enteric coated capsule, 20 mg= 1 capsule, By Mouth, Daily, 3 refills ??Paxil 40 mg oral tablet, 40 mg= 1 tablet, By Mouth, Daily ?? Allergies NKA ?? Social History Alcohol ??Use: Past. Electronic Cigarette/Vaping ??Electronic Cigarette Use: Never. Tobacco ??Use: Never (less than 100 in lifetime). ?? Immunizations ??Vaccine ??Date ??Status ??FluLaval (oldterm) ??05/29/2009 ??Given Comments : given w/o incident ?? INFO SHEET GIVEN ??Influenza Inactive (IM) (oldterm) ??05/16/2008 ??Given ??Pneumococcal Vaccine (oldterm) ??04/22/2006 ??Given ??tetanus-diphtheria toxoids (Td) ??04/22/2006 ??Given EKG study * Event Display: ECG 12-Lead Authored Date: Please click on pdf link to open report * Event Display: ECG 12-Lead Authored Date: Ventricular Rate: 82 BPM Atrial Rate: 82 BPM P-R Interval: 180 ms QRS Duration: 142 ms Q-T Interval: 438 ms QTC Calculation(Bazett): 511 ms P [place]: 58 degrees R [place]: -16 degrees [place]: 116 degrees Normal sinus rhythm Left bundle branch block Abnormal ECG When compared with ECG of 04-Jul-2024 09:33, No significant change was found Confirmed by MILTON OROURKE ([id number]) on 07/05/2024 2:31:29 PM [place]: MILTON OROURKE * Event Display: EKG Authored Date: * Event Display: EKG Authored Date: * Event Display: ECG 12-Lead Authored Date: [id number] Please click on pdf link to open report * Event Display: ECG 12-Lead Authored Date: [id number] Ventricular Rate: 79 BPM Atrial Rate: 79 BPM P-R Interval: 164 ms QRS Duration: 144 ms Q-T Interval: 446 ms QTC Calculation(Bazett): 511 ms P [place]: 49 degrees [place]: -11 degrees [place]: 141 degrees Normal sinus rhythm Left bundle branch block Abnormal ECG When compared with ECG of 04-Jul-2024 07:01, Left bundle branch block is now Present Confirmed by MILTON OROURKE ([id number]) on 07/04/2024 6:22:17 PM [place]: MILTON OROURKE * Event Display: ECG 12-Lead Authored Date: [id number] Please click on pdf link to open report * Event Display: ECG 12-Lead Authored Date: [id number] Ventricular Rate: 71 BPM Atrial Rate: 71 BPM P-R Interval: 154 ms QRS Duration: 92 ms Q-T Interval: 404 ms QTC Calculation(Bazett): 439 ms P [place]: 56 degrees [place]: 27 degrees [place]: 163 degrees Normal sinus rhythm Left ventricular hypertrophy with repolarization abnormality Abnormal ECG When compared with ECG of 05-Apr-2024 09:39, No significant change was found Confirmed by Levon Larkin ([id number]) on 07/04/2024 7:25:51 AM [place]: Levon Larkin [facility] * Event Display: Echocardiogram - Complete Authored Date: [id number] Transthoracic Echocardiography Report (TTE) Patient Demographics Patient Name MARLENA PALM Date of Study 07/05/2024 Corporate Gender Male [facility] Race .[id number] Ethnicity Date of 1940 Height: 66.93 inches Age 83 year(s) Weight: 191.8 pounds Accession Number [id number] BSA: 1.98 m2 Room Number [id number] BMI: 30.1 kg/m2 Referring Gabe MATTHEW Interpreting Jaya Gutierrez, Physician Physician Pharmaceutical Officer Darin Zambrano Indications S/P aortic valve replacement (AVR). Clinical History TAVR 29 mm Medtronic Hypertension. aortic stenosis Obesity. Hyperlipidemia. Study Data Type of Study TTE procedure:Echo Complete-Doppler, Colorflow, M-Mode. Study Date07/05/2024 Start Time: 08:19 AM Study [place] [facility] [place] Study Status: Echo lab Patient Status: Routine Technical Quality: Fair Blood Pressure:109/50 mmHg EKG: Normal sinus rhythm HR: 85 bpm Allergies - No known allergies. 2D Measurements LV Diastolic Dimension: 4.4 cm LV Systolic Dimension: 2.9 cm LV Septum Diastolic: 1.2 cm LV PW Diastolic: 1.1 cm LA ESV (BP):74.5 ml LA ESV Index: 38 ml/m2 LVOT Stroke Volume: 81.01 ml LVOT: 2.1 cm Stroke Volume Index40.91 ml/m2 Ascending Aorta:3.2 cm Cardiac Index:3.48 l/min/m2 Doppler Measurements AV Peak Velocity: 231 cm/s MV Peak E-Wave: 80.4 cm/s AV Peak Gradient: 21.34 mmHg MV Peak A-Wave: 96.2 cm/s AV Mean Gradient: 12 mmHg MV E/A Ratio: 0.84 AV VTI:42.7 cm MV P1/2t: 42 msec LVOT Peak Velocity: 123 cm/s LVOT VTI23.4 cm MV Deceleration Time: 143 msec AV Area (Continuity):1.9 cm2 MV Area (PHT): 5.24 cm2 TR Velocity:285 cm/s TR Gradient:32.49 mmHg E' Septal Velocity: 6.53 cm/s E' Lateral Velocity: 6.09 cm/s E/Med E':12.3124 E/Lat E':13.77086 Cardiac Anatomy Left Ventricle/Interventricular Septum The left ventricular size is normal. The left ventricular wall thickness is mildly increased in a pattern of concentric hypertrophy. Left ventricular systolic function is normal. LVEF visually estimated at 60 to 65%. Abnormal septal motion consistent with conduction abnormality. Grade II diastolic dysfunction with elevated left atrial pressure estimation. Left Atrium/Interatrial Septum The left atrium is mildly dilated. Aortic Valve The aortic valve is poorly visualized. There is a bioprosthetic valve in the aortic position (TAVR 29 mm Medtronic). There is mild perivalvular regurgitation. No evidence of prosthetic aortic stenosis or central regurgitation. The aortic valve mean gradient is 12 mmHg. Mitral Valve There is mild mitral annular calcification. The mitral valve appears moderately calcified. No significant mitral stenosis or regurgitation. Aorta The ascending aorta is normal in size. Right Ventricle The right ventricle is normal in size and systolic function. Right Atrium The right atrium is poorly visualized. Pulmonic Valve The pulmonic valve leaflets are poorly visualized. The pulmonic valve is functionally normal. Tricuspid Valve The tricuspid valve is poorly visualized. There is mild tricuspid regurgitation. Pumonary Artery The pulmonary artery systolic pressure estimation is 32 mmHg plus right atrial pressure. Venous Structures The inferior vena cava is poorly visualized. Pericardium/Extracardiac There is no significant pericardial effusion. Summary The left ventricular size is normal. The left ventricular wall thickness is mildly increased in a pattern of concentric hypertrophy. Left ventricular systolic function is normal. LVEF visually estimated at 60 to 65%. Abnormal septal motion consistent with conduction abnormality. Grade II diastolic dysfunction with elevated left atrial pressure estimation. The right ventricle is normal in size and systolic function. The left atrium is mildly dilated. There is a bioprosthetic valve in the aortic position (TAVR 29 mm Medtronic). There is mild perivalvular regurgitation. No evidence of prosthetic aortic stenosis or central regurgitation. The aortic valve mean gradient is 12 mmHg. There is mild tricuspid regurgitation. The pulmonary artery systolic pressure estimation is 32 mmHg plus right atrial pressure. Comparison Comparison is made to the study of July 04, 2024. No definite significant change on comparable views. Signature * Event Display: Echocardiogram - Complete Authored Date: [id number] * Event Display: Echocardiogram - Complete Authored Date: [id number] Transthoracic Echocardiography Report (TTE) Patient Demographics Patient Name MARLENA PALM Date of Study 07/04/2024 Corporate Gender Male Facility Race .[id number] Ethnicity Date of 1940 Height: 66.93 inches Age 83 year(s) Weight: 191.8 pounds Accession Number [id number] BSA: 1.98 m2 Room Number [id number] BMI: 30.1 kg/m2 Referring Erick Latif MD Interpreting Esperanza Redd MD Physician Physician Pharmaceutical Officer Sukumar [facility] Shari Indications Aortic valve disease, non-rheumatic. Additional Indications:TAVE 29 mm Medtronic Clinical History HTN HLD PAD Study Data Type of Study TTE procedure:Echo 2D Limited or Follow-up, Colorflow, Doppler Follow-up or Limited. 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 2D Measurements LVOT Stroke Volume: 99.16 ml LVOT: 2.2 cm Stroke Volume Index50.08 ml/m2 Cardiac Index:3.95 l/min/m2 Doppler Measurements AV Peak Velocity: 159 cm/s AV Peak Gradient: 10.11 mmHg AV Mean Gradient: 5 mmHg AV VTI:31.6 cm LVOT Peak Velocity: 120 cm/s LVOT VTI26.1 cm AV Area (Continuity):3.14 cm2 Cardiac Anatomy Left Ventricle/Interventricular Septum Limited study. Function appears normal. Aortic Valve The aortic valve is poorly visualized. There is a bioprosthetic valve in the aortic position (TAVR 29 mm Medtronic). There is mild perivalvular leak post dilation. No significant central regurgitation. Pericardium/Extracardiac There is no significant pericardial effusion. Summary The aortic valve is poorly visualized. There is a bioprosthetic valve in the aortic position (TAVR 29 mm [employer]tronic). There is mild perivalvular leak post dilation. No significant central regurgitation. There is no significant pericardial effusion. Comparison No prior study available for comparison. Signature * Event Display: Echocardiogram - Complete Authored Date: Cardiology * Event Display: Cardiac Rhythm Strips Authored Date: * Event Display: Cardiac Rhythm Strips Authored Date: Hospital Progress note * Natasha Dowd RN: PERFORM, MODIFY, SIGN, VERIFY Event Display: Progress Note Hospital Authored Date: Patient: MARLENA PALM Age: 83 years Sex: Male : 1940 Associated Diagnoses: None Author: Natasha Dowd RN Findings Evaluation Pt admitted today at noon from care unit. A&O x4. VSS. On tele, NSR with L bundle branch. Pt isindependent in room. TR band was taken off this shift and has a bandaid, no bleeding, nothing notable at this moment. Pt has complaint of pain 5/10, PRN tylenol given per OCT. Fall and safety precautions maintained, call segura within reach, hourly rounding maintained.. Patient Care team information Care Team Personnel Name: Roselyn Colbert RN Position: ASAEL RN Member Role: Primary Care Nurse Name: Lexx Alcantar RN Position: TAMIS RN Member Role: Primary Care Nurse Name: Nish Lin Position: Reference Physician Member Role: PCP Address: [address] [place] [address] [facility] [address] Telecom: Name: Elizabeth Julian RN Position: ASAEL RN Member Role: Primary Care Nurse Care Team Related Persons Name: SLY PALM Insurance Providers Guarantor name: MARLENA PALM Health Plan Information #: 1 Payer: [employer] [facility] Member Number: [id number] Policy Number: NA Group Number: [id number] Health Plan Information #: 2 Payer: [employer] [place] [facility] Member Number: [id number] Policy Number: NA Group Number: NA
--- OUTSIDE RECORDS SUMMARY | 2024-07-22 10:53 | XMS_ITS | Continuity of Care Document ---
Author Organization [facility] ter Address [address] [place] [id number]- Care Team Providers Care Dock Guard Name Role Phone Nish Lin Primary Care Physician Encounter [facility] [place] Date(s): 07/09/24 - 07/10/[address] [address]- Encounter Diagnosis Syncope(Final) - 07/09/24 Discharge Disposition: A-D/C Home Attending Physician: Tomasa WOODS, [facility] Admitting Physician: Jaya Coats DO Referring Physician: Not on Staff, Referring MD Encounter Type: Disch Obv Allergies, Adverse Reactions, Alerts No Known Allergies [...] mg oral tablet, extended release 25 mg, XL Tablet, By Mouth, Hold for: SBP less than 100, HR less than 60, 07/10/24 9:00:00 AM EST Start Date: 07/10/24 Stop Date: 07/10/24 Status: Completed Repeat number: 1 omeprazole 20 mg oral [...] Exam Date Time Procedure Performing Provider Status 07/09/24 12:14 PM Chest 2 Views Frontal and Lat Jah Chavez; Auth (Verified) Notes: (Chest 2 Views Frontal and Lat) Reason For Exam: Shortness of Breath RESULT: Chest 2 Views Frontal and Lat Chest 2 Views Frontal and Lat Hx of Present Illness: syncope x2 with headstrike, from home, heart valve surgery on thursday, groin access site. A O x3. blood from nose.no thinners.; Reason: Shortness of Breath; Clinical Question(s): CHF; Order Comment: collared per boat hand 07 09 2024 09:52:18 EST-AG COMPARISON: 07/05/2024. FINDINGS: LINES AND TUBES: None. LUNGS AND PLEURA: Clear lungs. Normal pulmonary vascularity. No pleural effusion. No pneumothorax. HEART, MEDIASTINUM AND GIANLUCA: Heart is normal in size. Normal mediastinal and hilar contour. BONES AND SOFT TISSUES: No acute abnormality. IMPRESSION: No acute abnormality. WSN: [id number] Ordering Physician: Maryam Gonzalez Dictated By: Maddy Mason MD Dictated Date/Time: 07/09/24 12:25 p Reviewed By: Maddy Mason MD Signed By: Maddy Mason MD Signed Date/Time: 07/09/24 12:25 pm Transcribed By: MARLENY Transcribed Date/Time: 07/09/24 12:23 pm * Exam Date Time Procedure Performing Provider Status 07/09/24 11:[address] Abd/Pelvis W/ IV Contrast Only Vanda Vogel; Auth (Verified) Notes: (CT Abd/Pelvis W/ IV Contrast Only) Reason For Exam: femoral artery dissection? hematoma? active extrav?;Other: RESULT: CT Abd/Pelvis W/ IV Contrast Only EXAMINATION: CT Angio Chest, CT Abd/Pelvis W/ IV Contrast Only INDICATION: syncope x2 with headstrike, from home, heart valve surgery on thursday, groin access site. A O x3. blood from nose.no thinners.; Reason: Other:; PE suspected, Intermediate prob, positive D-dimer,; Clinical Question(s): Pulmonary Embolism TECHNIQUE: Spiral CTA of the chest was performed after rapid IV contrast administration without cardiac gating triggered by an TRACEY on the main pulmonary artery. Spiral CT of the abdomen and pelvis was then performed in the portal venous phase. Images are formatted in multiple planes using 2-D multiplanar and 3-D maximum intensity projection. 100 cc of Isovue 300 was administered intravenously. Weight-based protocol using automatic tube modulation was used to optimize exposure parameters. CTDIvol Body: 10.98 mGy, DLP Body: 1089 mGy*cm. COMPARISONS: 06/13/2024 ANGIOGRAPHIC FINDINGS: No pulmonary embolism to the subsegmental level. Normal caliber pulmonary arteries. No acute aortic abnormality seen on this study performed without cardiac gating. Vasculature of the abdomen and pelvis was imaged in the venous phase. No abdominal aortic aneurysm.No acute vascular findings. NON-ANGIOGRAPHIC FINDINGS: Health And Safety Technician View Findings, Lines and Tubes: None. Trachea and Airways: Patent without evidence of tracheal or endobronchial lesion. Lungs and Pleura: Mild bibasilar atelectasis. No effusion or pneumothorax. Mediastinum and gianluca: No mass or hematoma. No mediastinal or hilar lymphadenopathy. No esophageal abnormality. Normal thyroid. Heart: Heart is normal in size. No pericardial effusion. Status post TAVR. The coronary arteries appear grossly patent. Chest Wall Soft Tissues: Normal. Diaphragm : No significant abnormality. Liver: Normal. Gallbladder: No CT evidence of gallbladder pathology. Bile ducts: No biliary ductal dilation. Spleen: Normal. Accessory splenic tissue is incidentally noted. Pancreas: Normal. Adrenal glands: Subcentimeter nodule on the right adrenal gland, statistically likely to be an adenoma. Kidneys and ureters: No hydronephrosis, stones, or suspicious masses. Simple appearing renal cysts are noted, requiring no dedicated follow up. Bladder: Normal. Reproductive organs: Prostatomegaly with transverse diameter of 4.8 cm. Stomach, small bowel, and large bowel: No evidence of bowel obstruction or focal inflammation. Few scattered diverticula of the colon without evidence of acute diverticulitis. Appendix: Normal, extending towards the right inguinal hernia. Peritoneum and retroperitoneum: No ascites or pneumoperitoneum. No omental or mesenteric lesions. Lymph nodes: No enlarged lymph nodes. Abdominal and pelvic wall: Mild fat stranding surrounding the right previous access site in the groin. Fat-containing right inguinal hernia. Small fat- containing umbilical hernia. Bones: No acute abnormality. IMPRESSION: No evidence of pulmonary embolism. No acute intra-abdominal pathology. I have personally reviewed the images and I agree with this report. WSN: [id number] Ordering Physician: Maryam Gonzalez Dictated By: Melo Moeyr MD Dictated Date/Time: 07/09/24 12:38 p Reviewed By: Nils Aparicio MD Signed By: Nils Aparicio MD Signed Date/Time: 07/09/24 12:43 pm Transcribed By: MARLENY Transcribed Date/Time: 07/09/24 12:19 pm * Exam Date Time Procedure Performing Provider Status 07/09/24 11:[address] Angio Chest Vanda Vogel; Auth (Verified) Notes: (CT Angio Chest) Reason For Exam: PE suspected, Intermediate prob, positive D-dimer,;Other: RESULT: CT Angio Chest EXAMINATION: CT Angio Chest, CT Abd/Pelvis W/ IV Contrast Only INDICATION: syncope x2 with headstrike, from home, heart valve surgery on thursday, groin access site. A O x3. blood from nose.no thinners.; Reason: Other:; PE suspected, Intermediate prob, positive D-dimer,; Clinical Question(s): Pulmonary Embolism TECHNIQUE: Spiral CTA of the chest was performed after rapid IV contrast administration without cardiac gating triggered by an TRACEY on the main pulmonary artery. Spiral CT of the abdomen and pelvis was then performed in the portal venous phase. Images are formatted in multiple planes using 2-D multiplanar and 3-D maximum intensity projection. 100 cc of Isovue 300 was administered intravenously. Weight-based protocol using automatic tube modulation was used to optimize exposure parameters. CTDIvol Body: 10.98 mGy, DLP Body: 1089 mGy*cm. COMPARISONS: 06/13/2024 ANGIOGRAPHIC FINDINGS: No pulmonary embolism to the subsegmental level. Normal caliber pulmonary arteries. No acute aortic abnormality seen on this study performed without cardiac gating. Vasculature of the abdomen and pelvis was imaged in the venous phase. No abdominal aortic aneurysm.No acute vascular findings. NON-ANGIOGRAPHIC FINDINGS: Health And Safety Technician View Findings, Lines and Tubes: None. Trachea and Airways: Patent without evidence of tracheal or endobronchial lesion. Lungs and Pleura: Mild bibasilar atelectasis. No effusion or pneumothorax. Mediastinum and gianluca: No mass or hematoma. No mediastinal or hilar lymphadenopathy. No esophageal abnormality. Normal thyroid. Heart: Heart is normal in size. No pericardial effusion. Status post TAVR. The coronary arteries appear grossly patent. Chest Wall Soft Tissues: Normal. Diaphragm : No significant abnormality. Liver: Normal. Gallbladder: No CT evidence of gallbladder pathology. Bile ducts: No biliary ductal dilation. Spleen: Normal. Accessory splenic tissue is incidentally noted. Pancreas: Normal. Adrenal glands: Subcentimeter nodule on the right adrenal gland, statistically likely to be an adenoma. Kidneys and ureters: No hydronephrosis, stones, or suspicious masses. Simple appearing renal cysts are noted, requiring no dedicated follow up. Bladder: Normal. Reproductive organs: Prostatomegaly with transverse diameter of 4.8 cm. Stomach, small bowel, and large bowel: No evidence of bowel obstruction or focal inflammation. Few scattered diverticula of the colon without evidence of acute diverticulitis. Appendix: Normal, extending towards the right inguinal hernia. Peritoneum and retroperitoneum: No ascites or pneumoperitoneum. No omental or mesenteric lesions. Lymph nodes: No enlarged lymph nodes. Abdominal and pelvic wall: Mild fat stranding surrounding the right previous access site in the groin. Fat-containing right inguinal hernia. Small fat- containing umbilical hernia. Bones: No acute abnormality. IMPRESSION: No evidence of pulmonary embolism. No acute intra-abdominal pathology. I have personally reviewed the images and I agree with this report. WSN: [id number] Ordering Physician: Maryam Gonzalez Dictated By: Melo Moyer MD Dictated Date/Time: 07/09/24 12:38 p Reviewed By: Nils Aparicio MD Signed By: Nils Aparicio MD Signed Date/Time: 07/09/24 12:43 pm Transcribed By: MARLENY Transcribed Date/Time: 07/09/24 12:19 pm * Exam Date Time Procedure Performing Provider Status 07/09/24 9:[address] Cervical Spine W/O Contrast Bozena Mahoney; [place] (Verified) Notes: (CT Cervical Spine W/O Contrast) Reason For Exam: Neck trauma, dangerous injury mechanism;Other: RESULT: CT Cervical Spine W/O Contrast CT Head/Brain W/O Contrast, CT Cervical Spine W/O Contrast INDICATION: Hx of Present Illness: syncope x2 with headstrike, from home, heart valve surgery on thursday, groin access site. A O x3. blood from nose.no thinners.; Reason: Trauma; Clinical Question(s):Hematoma TECHNIQUE: Noncontrast head CT using axial technique was reconstructed in axial and coronal planes.Noncontrast spiral CT through the cervical spine was formatted in 3 planes. Automatic tube modulation was used for the cervical spine and iterative dose reconstruction was used for both the head and cervical spine to optimize scan parameters and image quality. CTDIvol Body: 14.60 mGy, DLP Body: 370 mGy*cm. CTDIvol Head: 39.80 mGy, DLP Head: 672 mGy*cm. COMPARISON: None. FINDINGS: Health And Safety Technician View Findings, Lines and Tubes: None. BRAIN AND EXTRA-AXIAL SPACES: No parenchymal hemorrhage, midline shift, or mass effect. Dye-white matter differentiation is wellpreserved. No acute infarct. Mild prominence of the ventricles and sulci consistent with parenchymal volume loss. Moderate low-density white matter changes. No subarachnoid hemorrhage. No subdural or epidural collection. CALVARIUM, SKULL BASE, AND SOFT TISSUES: No fractures or suspicious bony lesions. The paranasal sinuses and mastoid air cells are clear. Visualized orbits and globes are intact. The extracranial soft tissues are unremarkable. CERVICAL SPINE: No fracture. No acute osseous abnormalities. Normal alignment. No locked or perched facet. Moderate multilevel degenerative disc space narrowingand end plate irregularity. OTHER BONES: No acute abnormality. CERVICAL SOFT TISSUES AND LUNG APICES: Normal soft tissues. Visualized lung apices are clear. IMPRESSION: No acute abnormality of the head or cervical spine. WSN: [id number] Ordering Physician: Maryam Gonzalez Dictated By: Maddy Mason MD Dictated Date/Time: 07/09/24 9:55 am Reviewed By: Maddy Mason MD Signed By: Maddy Mason MD Signed Date/Time: 07/09/24 9:55 am Transcribed By: MARLENY Transcribed Date/Time: 07/09/24 9:45 am * Exam Date Time Procedure Performing Provider Status 07/09/24 9:[address] Head/Brain W/O Contrast Denzel , N icole; Auth (Verified) Notes: (CT Head/Brain W/O Contrast) Reason For Exam: Trauma RESULT: CT Head/Brain W/O Contrast CT Head/Brain W/O Contrast, CT Cervical Spine W/O Contrast INDICATION: Hx of Present Illness: syncope x2 with headstrike, from home, heart valve surgery on thursday, groin access site. A O x3. blood from nose.no thinners.; Reason: Trauma; Clinical Question(s):Hematoma TECHNIQUE: Noncontrast head CT using axial technique was reconstructed in axial and coronal planes.Noncontrast spiral CT through the cervical spine was formatted in 3 planes. Automatic tube modulation was used for the cervical spine and iterative dose reconstruction was used for both the head and cervical spine to optimize scan parameters and image quality. CTDIvol Body: 14.60 mGy, DLP Body: 370 mGy*cm. CTDIvol Head: 39.80 mGy, DLP Head: 672 mGy*cm. COMPARISON: None. FINDINGS: Health And Safety Technician View Findings, Lines and Tubes: None. BRAIN AND EXTRA-AXIAL SPACES: No parenchymal hemorrhage, midline shift, or mass effect. Dye-white matter differentiation is wellpreserved. No acute infarct. Mild prominence of the ventricles and sulci consistent with parenchymal volume loss. Moderate low-density white matter changes. No subarachnoid hemorrhage. No subdural or epidural collection. CALVARIUM, SKULL BASE, AND SOFT TISSUES: No fractures or suspicious bony lesions. The paranasal sinuses and mastoid air cells are clear. Visualized orbits and globes are intact. The extracranial soft tissues are unremarkable. CERVICAL SPINE: No fracture. No acute osseous abnormalities. Normal alignment. No locked or perched facet. Moderate multilevel degenerative disc space narrowingand end plate irregularity. OTHER BONES: No acute abnormality. CERVICAL SOFT TISSUES AND LUNG APICES: Normal soft tissues. Visualized lung apices are clear. IMPRESSION: No acute abnormality of the head or cervical spine. WSN: [id number] Ordering Physician: Maryam Gonzalez Dictated By: Maddy Mason MD Dictated Date/Time: 07/09/24 9:55 am Reviewed By: Maddy Mason MD Signed By: Maddy Mason MD Signed Date/Time: 07/09/24 9:55 am Transcribed By: MARLENY Transcribed Date/Time: 07/09/24 9:45 am Vital Signs Most recent to oldest [Reference Range]: 1 2 3 Height 170 cm (07/10/24 11:41 AM) 170 cm (07/10/24 8:05 AM) 170 cm (07/10/24 4:21 AM) Weight 88 kg (07/09/24 2:41 PM) Oxygen Saturation [94-100 %] 97 % (07/10/24 11:41 AM) 96 % (07/10/24 8:05 AM) 99 % (07/10/24 4:21 AM) Pulse Rate [55-90 bpm] 96 bpm *H* (07/10/24 11:41 AM) 91 bpm *H* (07/10/24 8:18 AM) 91 bpm *H* (07/10/24 8:05 AM) Body Mass Index [18.5-24.99 kg/m2] 30.45 kg/m2 *>HHI* (07/09/24 2:41 PM) Blood Pressure [90-138/55-84 mm Hg] 131/61mm Hg (07/10/24 11:41 AM) 117/60mm Hg (07/10/24 8:18 AM) 117/60mm Hg (07/10/24 8:05 AM) Respiratory Rate [16-30 br/min] 16 br/min (07/10/24 11:41 AM) 18 br/min (07/10/24 11:09 AM) 17 br/min (07/10/24 8:05 AM) Temperature [96.8-100.4 DegF] 98.3 DegF (07/10/24 11:41 AM) 98.0 DegF (07/10/24 8:05 AM) 98.1 DegF (07/10/24 4:21 AM) Mode of Delivery (Oxygen) Room air (07/10/24 11:41 AM) Room air (07/10/24 8:05 AM) Room air (07/10/24 4:21 AM) Blood pressure sites Arm, right (07/10/24 11:41 AM) Arm, left (07/10/24 8:05 AM) Arm, right (07/10/24 4:21 AM) Temperature Route Oral (07/10/24 11:41 AM) Oral (07/10/24 8:05 AM) Oral (07/10/24 4:21 AM) Dry Weight 88 kg (07/09/24 2:41 PM) Weight Obtained Via Bed scale (07/09/24 2:41 PM) Dry Weight Obtained Via Bed scale (07/09/24 2:41 PM) Social History Social History Type Response Smoking Status Never (less than 100 in lifetime) entered on: 05/20/24 Sex Sex Representation Male (finding) History and physical note * Marlys Cervantes: PERFORM, MODIFY Event Display: History and Physical Hospital Authored Date: [id number] Patient: ??WHITE, MARLENA ? Age:??83 Years?Sex:??Male?:??1940?? Chief Complaint/Reason for Consultation Syncope History of Present Illness Patient is an 83-year-old male??with a PMH of diabetes, aortic stenosis brought to the ED today after syncopal episodes. ? Of note, patient was admitted recently for??TAVR that was??done on 07/04 after being found to be symptomatic with . He was discharged home ultimately with plan for follow-up. ??Surgery done throughright groin, and he has had some worsening swelling/bruising in this area. ??He states that they did evaluate the area on his follow-up, and they were not concerned about a significant hematoma at that time. ??He otherwise has been doing fairly well since his surgery. ??However, this morning, when he first woke up he had an episode where he felt lightheaded. ??This resolved, though then this happened again while he was reading the newspaper on the couch. ??He subsequently had a syncopal episode where he fell off the couch and did hit the right side of his face. ??No significant headaches or neck pain. ??No persistent lightheadedness/dizziness while here. ??No chest pain or difficulty breathing associated. ??His biggest concern is that he is still having the swelling/pain at the groin insertion site. ??He is not on any blood thinners.? As patient had his TAVR done by interventional cardiology here rather than cardiac surgery, ED reached out to cardiology team here for their input and recommendations.?? They did??discuss the casewith cardiology, Dr. Edouard, and they are recommending having him admitted to medicine and they will continue to follow once his workup is done in the ED.? Imaging done in the form of CT head without contrast which showed no acute abnormality of the head or cervical spine. ?? CT cervical spine showed the same.?? CT angio chest showed no evidence ofpulmonary embolism.?? No acute intra-abdominal pathology. ?? CT abdomen pelvis showed the same findings.?? Chest x-ray showed no acute normality. ?? Twelve-lead EKG reading sinus rhythm with first-degree AV block and left bundle branch.?? Lab work largely unremarkable aside from elevated troponin at 104 with a repeat of 103.?? COVID- negative, creatinine at baseline.?? Afebrile.?? No tachycardia or tachypnea, on room air. Review of Systems Full review of systems conducted negative except that mentioned HPI. Objective Vital Signs?? Temperature: 97.4 DegF (07/09/24 14:41:00) Temperature Route: Oral (07/09/24 14:41:00) Pulse Rate: 79 bpm (07/09/24 14:41:00) Respiratory Rate: 18 br/min (07/09/24 14:41:00) Systolic Blood Pressure: 130 mm Hg (07/09/24 14:41:00) Diastolic Blood Pressure: 64 mm Hg (07/09/24 14:41:00) Blood pressure sites: Arm, right (07/09/24 14:41:00) Mean Arterial Pressure: 86 mm Hg (07/09/24 14:41:00) Pulse Pressure: 66 mm Hg (07/09/24 14:41:00) Oxygen Saturation: 97 % (07/09/24 14:01:00) Mode of Delivery (Oxygen): Room air (07/09/24 14:01:00) Early Warning Score: 5 (07/09/24 14:48:50) ? Intake/Output? No Data Available ? Physical Exam Constitutional: Alert, in no distress.?? Head: Normocephalic. Eyes: Pupils are equal, round and reactive to light.?? Neck: Supple, Full range of motion. Respiratory: Clear to auscultation. No wheezing, rales or rhonchi. Cardiovascular: S1 S2 regular. No murmurs, rubs or gallops. Gastrointestinal: Abdomen soft, non-tender, non-distended. Normal bowel sounds.? Neurologic: No focal neurological deficits. Flexor plantar response. Moves all extremities spontaneously. Sensation intact bilaterally. Skin: No rashes or lesions. No petechiae or purpura.?? Musculoskeletal: No cyanosis or clubbing. No gross deformities. Normal range of motion. Heme/Lymphatics/Immun: Palpation of neck reveals no swelling or tenderness of neck nodes.? Psychiatric: Normal mood and affect Assessment/Plan Patient is an 83-year-old male??with a PMH of diabetes, aortic stenosis brought to the ED today after syncopal episodes. ? Syncope (R55):??Unclear etiology, no significant findings on imaging or lab work to suggest acute process. ?? Plan: -continue to monitor symptoms?? -tele monitoring?? -cards consult as described below given recent TAVR? S/P TAVR (transcatheter aortic valve replacement) (Z95.2):? Plan: -s/p TAVR on 07/04 with interventional cards?? -ED has spoken with them, recommending admission for monitoring and they will follow?? -formal consult placed in [facility]?? -continue ASA from home?? -continue statin therapy?? -continue tele monitoring ?? Hypertension (I10):??Chronic, stable. ?? Plan: -continue home Metoprolol with holding parameters ?? Quality Measures: VTE Prophylaxis:??Heparin TID Discharge Planning:??1-2 days depending on clinical course and disposition. Ongoing Medical Necessity:??Syncope?? Code Status:??Full- confirmed at bedside?? Histories Allergies Allergies ?(Active and Proposed Allergies Only) NKA? (Severity: Unknown severity, Onset: Unknown) ? Past Medical History/Problem List Active Problems(9) Anxiety Aortic stenosis, severe Gastro-esophageal reflux disease Glucose intolerance Hyperlipidemia Non-bacterial prostatitis Obese class I Tendonitis ??calcific/bursitis of left shoulder Vasectomy ?? Past Surgical History Diagnostic colonoscopy: 06/13/98 laminectomy vasectomy ?? Social History Alcohol Details:??Use: Past. Tobacco Details:??Use: Never (less than 100 in lifetime). Electronic Cigarette/Vaping Details:??Electronic Cigarette Use: Never. ?? Family History No Family History documented. Medications Home Medications Aspirin?81?Milligram?By Mouth?Daily Atorvastatin (atorvastatin 40 mg oral tablet)?1?tab(s)?40?Milligram?By Mouth?Daily Metoprolol (metoprolol 25 mg oral tablet, extended release)?25?Milligram?1?tablet?ByMouth?Daily Omeprazole (omeprazole 20 mg oral enteric coated capsule)?1?capsule?20?Milligram?By Mouth?Daily?for 90?Days Paroxetine (Paxil 40 mg oral tablet)?40?Milligram?1?tablet?By Mouth?Daily ? Inpatient Medications Medications (14) Active SCHEDULED: (6) Aspirin 81 mg Chew Tablet (aspirin 81 mg oral tablet, chewable) ??81 mg, By Mouth, Daily Atorvastatin 40 mg Tablet (atorvastatin 40 mg oral tablet) ??40 mg, By Mouth, Daily at bedtime Metoprolol (metoprolol 25 mg oral tablet, extended release) ??25 mg 1 tablet, By Mouth, Daily NaCl 0.9% Flush 3ml (NaCL 0.9% Flush) ??3 mL, IV Push, Every 8 hours Pantoprazole 20 mg EC Tablet (pantoprazole 20 mg oral delayed release tablet) ??20 mg, By Mouth, Daily Paroxetine 40mg Tablet (Paxil 40 mg oral tablet) ??40 mg, By Mouth, Daily CONTINUOUS: (0) PRN: (8) Acetaminophen 325 mg Tablet (Acetaminophen Tablet) ??650 mg, By Mouth, Every 4 hours Dextromethorphan-Guaifenesin 20 mg-200 mg/10 mL Liqu UD (Robitussin DM Liquid) ??10 mL, By Mouth, Every 4 hours Docusate Sodium 100 mg Capsule (Docusate Sodium Capsule) ??100 mg 1 capsule, By Mouth, 2 times a day Melatonin 3 mg Tablet (Melatonin Tablet) ??3 mg, By Mouth, Daily at bedtime NaCl 0.9% Flush 3ml (NaCL 0.9% Flush) ??3 mL, IV Push, Every 8 hours Polyethylene Glycol 17 Gm Powder (MiraLax Powder) ??17 Gm 1 pack/packet, By Mouth, Daily Senna Tablet ??8.6 mg 1 tablet, By Mouth, 2 times a day Simethicone 80 mg Chewable Tablet (Simethicone Tablet) ??80 mg, Chew, 3 times a day Results Recent Labs BLOOD COUNT & DIFF WBC 8.1 k/mm3 ()?? 07/09/2024 08:55 RBC 3.86 m/mm3 (Low)?? 07/09/2024 08:55 Hgb 11.7 Gm/dL (Low)?? 07/09/2024 08:55 Hct 35.0 % (Low)?? 07/09/2024 08:55 MCV 90.7 femtoliters ()?? 07/09/2024 08:55 MCH 30.3 pg ()?? 07/09/2024 08:55 MCHC 33.4 Gm/dL ()?? 07/09/2024 08:55 Platelet Count 134 k/mm3 (Low)?? 07/09/2024 08:55 RDW-SD 41.7 femtoliters ()?? 07/09/2024 08:55 MPV 9.4 femtoliters ()?? 07/09/2024 08:55 Nucleated RBC (Automated) 0.0 #/100 WBC'S ()?? 07/09/2024 08:55 Abs. NRBC 0.0 k/mm3 ()?? 07/09/2024 08:55 Abs. Neut 6.0 k/mm3 ()?? 07/09/2024 08:55 Abs. Lymph 1.3 k/mm3 ()?? 07/09/2024 08:55 Abs. [place] 0.7 k/mm3 ()?? 07/09/2024 08:55 Abs. Eo 0.1 k/mm3 ()?? 07/09/2024 08:55 Abs. Baso 0.0 k/mm3 ()?? 07/09/2024 08:55 Neut % 73.6 % ()?? 07/09/2024 08:55 Lymph % 16.1 % ()?? 07/09/2024 08:55 [place] % 8.1 % ()?? 07/09/2024 08:55 Eos % 1.5 % ()?? 07/09/2024 08:55 Baso % 0.2 % ()?? 07/09/2024 08:55 Imm Gran 0.5 % ()?? 07/09/2024 08:55 Abs. Imm Gran 0.0 k/mm3 ()?? 07/09/2024 08:55 ?? CARDIAC Nt-Probnp 195 pg/mL ()?? 07/09/2024 09:00 High Sensitivity Troponin (HSTnT) 103 ng/L (Critical)?? 07/09/2024 11:31 ?? CHEM GENERAL Sodium 138 mmol/L ()?? 07/09/2024 09:00 Potassium 4.1 mmol/L ()?? 07/09/2024 09:00 Chloride 103 mmol/L ()?? 07/09/2024 09:00 Bicarbonate Level 21 mmol/L (Low)?? 07/09/2024 09:00 Anion Gap 14 ()?? 07/09/2024 09:00 Glucose Level 166 mg/dL (High)?? 07/09/2024 09:00 BUN 21 mg/dL ()?? 07/09/2024 09:00 Creatinine-Blood 0.64 mg/dL (Low)?? 07/09/2024 09:00 Estimated GFR Creatinine 94 ML/MIN/1.73 M2 ()?? 07/09/2024 09:00 Calcium 9.0 mg/dL ()?? 07/09/2024 09:00 ?? COAG INR 1.0 ()?? 07/09/2024 08:55 Protime (PT) 10.9 seconds ()?? 07/09/2024 08:55 D-Dimer 3.72 mg/L FEU (High)?? 07/09/2024 08:55 ?? ENDOCRINE/TUMOR MARKER TSH 2.08 uIU/mL ()?? 07/09/2024 09:00 ?? URINE OTHER Est Creatinine Clearance 81.56 mL/min ()?? 07/09/2024 14:48 ?? VIROLOGY COVID-19 by RT-PCR NEGATIVE ()?? 07/09/2024 08:55 ? Microbiology ?? COVID-19 (Novel Coronavirus), Rapid PCR?? Completed?? Source: Nasal Body Site: Nose Collected Dt/Tm: 07/09/2024 08:50 Last Updated Dt/Tm: 07/09/2024 10:35 ? EKG study * Event Display: ECG 12-Lead Authored Date: Please click on pdf link to open report * Event Display: ECG 12-Lead Authored Date: Ventricular Rate: 88 BPM Atrial Rate: 88 BPM P-R Interval: 212 ms QRS Duration: 152 ms Q-T Interval: 428 ms QTC Calculation(Bazett): 517 ms P Clinton: 59 degrees R Clinton: -8 degrees T Clinton: 145 degrees Sinus rhythm with 1st degree A-V block Left bundle branch block Abnormal ECG When compared with ECG of 05-Jul-2024 07:26, OR interval has increased Confirmed by MISBAH WINSTON MD ([id number]) on 07/09/2024 9:49:29 AM Mccune: CHE WOODS,[facility] Progress note * Jeffrey Edouard MD: PERFORM Event Display: Progress Note Hospital Authored Date: Patient: ??MARLENA SRPINGER ? Age:??83 Years?Sex:??Male?:??1940?? Subjective Pt denies cp, sob, or lightheadedness. Tele: SR Objective Vitals & Measurements T:??98.3?F?? TMIN:??98.0?F?? TMAX:??98.3?F?? HR:??96??(Peripheral)?? RR:??16?? BP:??131/61?? SpO2:??97%?? Physical Exam General: no acute distress Head: atraumatic Eyes: anicteric Lungs: CTAB Heart: RRR, no murmur Abd: soft, non-tender Skin: cool, dry Neuro: alert and oriented Psych: stable Assessment/Plan Hypertension S/P TAVR (transcatheter aortic valve replacement) Syncope (Provisional) HLD GERD Chronic LBBB ? EKG, labs, and TTE results reviewed. His EKG shows LBBB with first-degree AV delay.?? LV systolic function is normal.?? Patient's description of syncope and EKG findings are suspicious for a bradyarrhythmic etiology. No significant findings noted on tele. Will evaluate further via 30-day MCT loop monitoring as outpatient. ? Jeffrey Edouard MD Cardiology [facility] ?? Medications Inpatient Acetaminophen Tablet, 650 mg, By Mouth, Every 4 hours, PRN aspirin 81 mg oral tablet, chewable, 81 mg, By Mouth, Daily atorvastatin 40 mg oral tablet, 40 mg, By Mouth, Daily at bedtime Dextrose 50% Inj Syringe (25Gm), 12.5 Gm, IV Push Slowly, Every 20 minutes, PRN Dextrose 50% Inj Syringe (25Gm), 25 Gm, IV Push Slowly, Every 15 minutes, PRN Docusate Sodium Capsule, 100 mg= 1 capsule, By Mouth, 2 times a day, PRN Glucagon Inj, 1 mg, Intramuscular, Once, PRN Glucose Gel, 15 Gm, By Mouth, Every 20 minutes, PRN Glucose Gel, 30 Gm, By Mouth, Every 20 minutes, PRN Heparin Inj, 5000 units= 1 mL, Subcutaneous Injection, 3 times a day Insulin LISPRO Sliding Scale, 2-10 units, Subcutaneous Injection, 3 times a day before meals Melatonin Tablet, 3 mg, By Mouth, Daily at bedtime, PRN metoprolol 25 mg oral tablet, extended release, 25 mg, By Mouth, Daily MiraLax Powder, 17 Gm= 1 pack/packet, By Mouth, Daily, PRN NaCL 0.9% Flush, 3 mL, IV Push, Every 8 hours NaCL 0.9% Flush, 3 mL, IV Push, Every 8 hours, PRN pantoprazole 20 mg oral delayed release tablet, 20 mg, By Mouth, Daily Paxil 40 mg oral tablet, 40 mg, By Mouth, Daily Robitussin DM Liquid, 10 mL, By Mouth, Every 4 hours, PRN Senna Tablet, 8.6 mg= 1 tablet, By Mouth, 2 times a day, PRN Simethicone Tablet, 80 mg, Chew, 3 times a day, PRN Home Aspirin, 81 mg, By Mouth, Daily atorvastatin 40 mg oral tablet, 40 mg= 1 tablet, By Mouth, Daily omeprazole 20 mg oral enteric coated capsule, 20 mg= 1 capsule, By Mouth, Daily, 3 refills Paxil 40 mg oral tablet, 40 mg= 1 tablet, By Mouth, Daily Consult note * Jeffrey Edouard MD: PERFORM Event Display: Consultation Note Authored Date: Patient: ??WHITE, MARLENA ? Age:??83 Years?Sex:??Male?:??1940?? Indication for Consult swyncope x2 with headstrike, from home, heart valve surgery on thursday, groin access site. A/O x3. blood from nose.no thinners. History of Present Illness/Interval History 83-year-old male with medical history significant for severe status (07/04/20), chronic LBBB, DM, HLD, and GERD presents to the ER after episode of syncope. ?? He states that he has been doing fine since his recent CHAD.?? He describes 3 episodes of syncope that occurred earlier today.?? He states that first episode occurred when he was using his laptop.?? He felt lightheaded and then lost consciousness.?? 3 such episodes occurred in total -each preceded by lightheadedness.?? He denies any recent episodes of chest pain, shortness of breath, or palpitations.?? Review of Systems All systems reviewed and found to be negative except as mentioned above in the HPI. Physical Exam Vitals & Measurements T:??97.4?F?? HR:??79??(Peripheral)?? RR:??18?? BP:??130/64?? SpO2:??97%?? HT:??170??cm?? WT:??88??kg?? BMI:??30.45?? Weight lb/oz: 194 lb 0 oz General: no acute distress Head: atraumatic Eyes: anicteric Lungs: CTAB Heart: RRR, no murmur Abd: soft, non-tender Skin: cool, dry Neuro: alert and oriented Psych: stable Assessment/Plan Hypertension S/P TAVR (transcatheter aortic valve replacement) Syncope (Provisional) HLD GERD Chronic LBBB ? EKG, labs, and TTE results reviewed. His EKG shows LBBB with first-degree AV delay.?? LV systolic function is normal.?? Patient's description of syncope and EKG findings are suspicious for a bradyarrhythmic etiology. Recommend telemetry monitoring. I discussed the potential need for pacemaker should we discovered a bradyarrhythmic cause syncope with the patient. ? Jeffrey Edouard MD Cardiology [facility] Allergies NKA Home Medications Aspirin: 81 mg, By Mouth, Daily Atorvastatin: 40 mg = 1 tablet, By Mouth, Daily Metoprolol: 25 mg = 1 tablet, By Mouth, Daily Omeprazole: 20 mg = 1 capsule, By Mouth, Daily Paroxetine: 40 mg = 1 tablet, By Mouth, Daily Hospital Medications Medications (21) Active SCHEDULED: (8) Aspirin 81 mg Chew Tablet (aspirin 81 mg oral tablet, chewable) ??81 mg, By Mouth, Daily Atorvastatin 40 mg Tablet (atorvastatin 40 mg oral tablet) ??40 mg, By Mouth, Daily at bedtime Heparin 5000 units/mL Inj (1 mL) (Heparin Inj) ??5,000 units 1 mL, Subcutaneous Injection, 3 times a day Insulin Lispro 100 units/mL Inj (Insulin LISPRO Sliding Scale) ??2-10 units, Subcutaneous Injection, 3 times a day before meals Metoprolol 25 mg XL Tablet (metoprolol 25 mg oral tablet, extended release) ??25 mg, By Mouth, Daily NaCl 0.9% Flush 3ml (NaCL 0.9% Flush) ??3 mL, IV Push, Every 8 hours Pantoprazole 20 mg EC Tablet (pantoprazole 20 mg oral delayed release tablet) ??20 mg, By Mouth, Daily Paroxetine 40mg Tablet (Paxil 40 mg oral tablet) ??40 mg, By Mouth, Daily CONTINUOUS: (0) PRN: (13) Acetaminophen 325 mg Tablet (Acetaminophen Tablet) ??650 mg, By Mouth, Every 4 hours Dextromethorphan-Guaifenesin 20 mg-200 mg/10 mL Liqu UD (Robitussin DM Liquid) ??10 mL, By Mouth, Every 4 hours Dextrose Inj Syringe (Dextrose 50% Inj Syringe (25Gm)) ??12.5 Gm, IV Push Slowly, Every 20 minutes Dextrose Inj Syringe (Dextrose 50% Inj Syringe (25Gm)) ??25 Gm, IV Push Slowly, Every 15 minutes Docusate Sodium 100 mg Capsule (Docusate Sodium Capsule) ??100 mg 1 capsule, By Mouth, 2 times a day Glucagon 1 mg Inj (Glucagon Inj) ??1 mg, Intramuscular, Once Glucose 40% Gel (15 Gm) (Glucose Gel) ??15 Gm, By Mouth, Every 20 minutes Glucose 40% Gel (15 Gm) (Glucose Gel) ??30 Gm, By Mouth, Every 20 minutes Melatonin 3 mg Tablet (Melatonin Tablet) ??3 mg, By Mouth, Daily at bedtime NaCl 0.9% Flush 3ml (NaCL 0.9% Flush) ??3 mL, IV Push, Every 8 hours Polyethylene Glycol 17 Gm Powder (MiraLax Powder) ??17 Gm 1 pack/packet, By Mouth, Daily Senna Tablet ??8.6 mg 1 tablet, By Mouth, 2 times a day Simethicone 80 mg Chewable Tablet (Simethicone Tablet) ??80 mg, Chew, 3 times a day Lab Results Cardiology Labs WBC: 8.1 k/mm3 (07/09/24) RBC:??3.86 m/mm3??Low (07/09/24) Hgb:??11.7 Gm/dL??Low (07/09/24) Hct:??35 %??Low (07/09/24) MCV: 90.7 femtoliters (07/09/24) MCH: 30.3 pg (07/09/24) MCHC: 33.4 Gm/dL (07/09/24) Platelet Count:??134 k/mm3??Low (07/09/24) RDW-SD: 41.7 femtoliters (07/09/24) Nucleated RBC (Automated): 0 #/100 WBC'S (07/09/24) Abs. Neut: 6 k/mm3 (07/09/24) Abs. Lymph: 1.3 k/mm3 (07/09/24) Abs. Madison: 0.7 k/mm3 (07/09/24) Abs. Eo: 0.1 k/mm3 (07/09/24) Abs. Baso: 0 k/mm3 (07/09/24) Neut %: 73.6 % (07/09/24) Madison %: 8.1 % (07/09/24) Eos %: 1.5 % (07/09/24) Baso %: 0.2 % (07/09/24) Imm Gran: 0.5 % (07/09/24) Abs. Imm Gran: 0 k/mm3 (07/09/24) INR: 1 (07/09/24) Protime (PT): 10.9 seconds (07/09/24) Sodium: 138 mmol/L (07/09/24) Potassium: 4.1 mmol/L (07/09/24) Chloride: 103 mmol/L (07/09/24) Bicarbonate Level:??21 mmol/L??Low (07/09/24) Glucose Level:??166 mg/dL??High (07/09/24) BUN: 21 mg/dL (07/09/24) BUN: 24 mg/dL (06/27/24) Creatinine-Blood:??0.64 mg/dL??Low (07/09/24) Calcium: 9 mg/dL (07/09/24) Nt-Probnp: 195 pg/mL (07/09/24) TSH: 2.08 uIU/mL (07/09/24) Diagnostic Impression CT CT TAVR Angio Chest ?? 09:55:54 IMPRESSION: 1. Aortic valve type: tricuspid. 2. Aortic valve annular dimensions, coronary ostial distances, and arterial diameters as above. 3. LVOT calcification: Moderate. 4. No significant incidental findings. ? I have personally reviewed the images and I agree with this report. WSN: [id number] ? Ordering Physician: Neftaly Dias ?? Signed By: Jacob Tyler MD CT TAVR Heart ?? 09:55:54 IMPRESSION: 1. Aortic valve type: tricuspid. 2. Aortic valve annular dimensions, coronary ostial distances, and arterial diameters as above. 3. LVOT calcification: Moderate. 4. No significant incidental findings. ? I have personally reviewed the images and I agree with this report. WSN: [id number] ? Ordering Physician: Neftaly Dias ?? Signed By: Jacob Tyler MD ECG ECG 12-Lead ?? 08:42:55 Please click on pdf link to open report ?? Signed By: Misbah Winston DO ?? ECG 12-Lead ?? 08:42:55 Ventricular Rate: 88 BPM Atrial Rate: 88 BPM P-R Interval: 212 ms QRS Duration: 152 ms Q-T Interval: 428 ms QTC Calculation(Bazett): 517 ms P Clinton: 59 degrees R Clinton: -8 degrees T Clinton: 145 degrees Sinus rhythm with 1st degree A-V block Left bundle branch block Abnormal ECG When compared with ECG of 05-Jul-2024 07:26, OR interval has increased Confirmed by MISBAH WINSTON MD ([id number]) on 07/09/2024 9:49:29 AM ?? Mccune: MISBAH WINSTON MD ?? Signed By: Misbah Winston DO Echo Echocardiogram - Complete ?? 08:19:55 Summary The left ventricular size is normal. [...] is 32 mmHg plus right atrial pressure. ?? Comparison Comparison is made to the study of July 04, 2024. No definite significant change on comparable views. ?? Signature ?? Signed By: Jaya Gutierrez MD Cardiac Cath Procedure Cardiac Cath Procedure ?? 12:56:00 Conclusions ?? Diagnostic Summary 83-year-old gentleman with severe aortic stenosis, prediabetes, hyperlipidemia and hypertension who is being evaluated for TAVR. ?? PA 34/6 mmHg, mean 20 mmHg PCW 11 mmHg RV 35/1 mmHg, mean 9 mmHg RA 8 mmHg ?? Diagnostic angiogram revealed minimal luminal irregularities of the LMCA, 30% stenosis in the mid subsection of proximal LAD, minimal luminal irregularities of the LCx and normal RCA. ?? Above-mentioned finding indicates that patient only has severe aortic stenosis which needs replacement. Does not need any bypass surgery at this time. Considering her age and multiple comorbidities, I would recommend her for transcatheter aortic valve replacement. Will get her be seen by Thoracic surgery as well as TAVR protocol CT scan prior to finalizing the decision. ?? Diagnostic Recommendations Aggressive secondary risk factor modification according to ATP III guidelines. Continue aspirin 81 mg/day indefinitely. Cardiothoracic surgery evaluation for TAVR. CT scan TAVR protocol as outpatient. After having a discussion in the heart limiting, we will schedule TAVR as an outpatient for him. ?? Signatures ?? Signed By: Neftaly Dias MD Problem List/Past Medical History Ongoing Anxiety Aortic stenosis, severe Gastro-esophageal reflux disease Glucose intolerance Hyperlipidemia Non-bacterial prostatitis Obese class I Tendonitis calcific/bursitis of left shoulder Vasectomy Procedure/Surgical History Diagnostic colonoscopy: 06/13/98 laminectomy vasectomy Social History Alcohol Use: Past. Electronic Cigarette/Vaping Electronic Cigarette Use: Never. Tobacco Use: Never (less than 100 in lifetime). Family History No family history recorded. Note * Bozena German RN: PERFORM Event Display: Discharge/Transfer Note Hospital Authored Date: Nursing Discharge Note Entered On: 07/10/2024 12:43 EST Performed On: 07/10/2024 12:43 EST by Bozena German RN Nursing Discharge Note 2 Discharge Time : 07/10/2024 12:43 EST Discharge Level of Care at Discharge : Home/Detention/Foster Care Patient Left Unit Via : Wheelchair Patient Accompanied Off Unit with : Responsible adult DC Instructions Provided & Signed by Pt : Yes Patient Understands D/C Instructions : Yes Patient Instructions Discharge Signed : Yes Did Pt have Specialty Bed or Wound Vac : No Bozena German RN - 07/10/2024 12:43 EST * Tomasa WOODS, Rachid: PERFORM, MODIFY Event Display: Discharge/Transfer Note Hospital Authored Date: Patient: ??WHITE, MARLENA ? Age:??83 Years?Sex:??Male?:??1940?? Patient Information Discharge Location: B Primary Care Physician: Nish Lin Admit Date/Time: 07/09/2024 08:38 Discharge Disposition Discharge Disposition: Home: No Services Discharge Diagnosis Syncope (R55) Hypertension (I10) S/P TAVR (transcatheter aortic valve replacement) (Z95.2) _ Discharge Medications Aspirin?81?Milligram?By Mouth?Daily Atorvastatin (atorvastatin 40 mg oral tablet)?1?tab(s)?40?Milligram?By Mouth?Daily Omeprazole (omeprazole 20 mg oral enteric coated capsule)?1?capsule?20?Milligram?By Mouth?Daily?for 90?Days Paroxetine (Paxil 40 mg oral tablet)?40?Milligram?1?tablet?By Mouth?Daily ? Medications Discontinued Metoprolol. Allergies Allergies ?(Active and Proposed Allergies Only) NKA? (Severity: Unknown severity, Onset: Unknown) ? PCP Follow-Up/Heads-Up Follow up for syncope, needs loop monitor as an outpatient Objective Assessment and Plan 83-year-old male??with a PMH of diabetes, aortic stenosis brought to the ED today after syncopal episodes. ? Syncope (R55):??Unclear etiology, no significant findings on imaging or lab work to suggest acute process. Had recent??TAVR. Orthostatic vitals negative. No chest pain, SOB, palpitations.?? Does not appear volume overloaded. Telemetry shows sinus??rhythm with 1st degree AVB, no arrhythmias noted Given possibility of bradyarrhythmia, metoprolol has been discontinued for the time being, and patient will get loop monitoring as an outpatient per cardiology Dr. Jeffrey Edouard. Cardiology to arrange follow up. ? S/P TAVR (transcatheter aortic valve replacement) (Z95.2):? Plan: -s/p TAVR on 07/04 with interventional cards?? -continue ASA from home?? -continue statin therapy? Hypertension (I10):??Chronic, stable. ?? Plan: -continue home Metoprolol with holding parameters ? Vital Signs?? Temperature: 98.3 DegF (07/10/24 11:41:00) Temperature Route: Oral (07/10/24:41:00) Pulse Rate:??96 bpm??High (07/10/24:41:00) Pulse Rate, Lyin bpm (07/09/24 21:29:00) Systolic Blood Pressure, Lyin mm Hg (07/09/24:29:00) Diastolic Blood Pressure, Lyin mm Hg (07/09/24 21:29:00) Pulse Rate, Sittin bpm (07/09/24:29:00) Systolic Blood Pressure, Sittin mm Hg (07/09/24:29:00) Diastolic Blood Pressure, Sittin mm Hg (07/09/24:29:00) Pulse Rate, Standin bpm (07/09/24:29:00) Systolic Blood Pressure, Standin mm Hg (07/09/24:29:00) Diastolic Blood Pressure, Standin mm Hg (07/09/24:29:00) Respiratory Rate: 16 br/min (07/10/24:41:00) Systolic Blood Pressure: 131 mm Hg (07/10/24:41:00) Diastolic Blood Pressure: 61 mm Hg (07/10/24 11:41:00) Blood pressure sites: Arm, right (07/10/24:41:00) Mean Arterial Pressure: 84 mm Hg (07/10/24:41:00) Pulse Pressure: 70 mm Hg (07/10/24:41:00) Oxygen Saturation: 97 % (07/10/24:41:00) Mode of Delivery (Oxygen): Room air (07/10/24:41:00) Early Warning Score: 0 (07/10/24 11:42:36) ? Mobility & Ambulation Level Mobility & Ambulation Level Ambulatory devices needed: None (07/09/24) ?? Therapeutic Activity Therapeutic Activities/Mobility/Balance?? No qualifying data available. ?? . Physical Exam Constitutional: Alert, in no distress. Mental Status: Oriented to person, place and time. Head: Normocephalic. Eyes: Pupils are equal, round and reactive to light. Extraocular muscles intact. Ear, Nose and Throat: Oropharynx clear, mucous membranes moist. Ears and nose without masses, lesions or deformities. Trachea midline. Neck: Supple, Full range of motion. Respiratory: Clear to auscultation. No wheezing, rales or rhonchi. Cardiovascular: S1 S2 regular. No murmurs, rubs or gallops. Gastrointestinal: Abdomen soft, non-tender, non-distended. Normal bowel sounds. No pulsatile mass. No hepatosplenomegaly. Genitourinary: No costovertebral angle tenderness. Neurologic: Cranial nerves II-XII grossly intact. No focal neurological deficits. Flexor plantar response. Moves all extremities spontaneously. Sensation intact bilaterally. Skin: No rashes or lesions. No petechiae or purpura.?? Musculoskeletal: No cyanosis or clubbing. No gross deformities. Normal range of motion. Heme/Lymphatics/Immun: Palpation of neck reveals no swelling or tenderness of neck nodes. Palpationof groin reveals no swelling or tenderness of groin nodes. Psychiatric: Normal mood and affect Pending Results Hold Lavender Tube (BB) ordered on 07/09/2024 Follow-Up Appointments Added Follow Up ?Time Frame ?Comments Kilo MATTHEW , Nish Ferro?1 week: call to discuss follow up visit Patient Instructions Please make an appointment to follow up with your PCP after discharge. The change management facilitator will follow up with your for a loop monitor as an outpatient. Your metoprolol has been discontinued for now. If you notice that your heart rates are persistently above 90, you may resume the medication. Take all medications as previously prescribed, and return to the ER if you experience worsening symptoms Please ensure you drink plenty of water to avoid dehydration. Post Discharge Care Discharge ?07/10/24 12:01:00 EST ?Order Comment:?? Discharge Prescriptions ?ePrescribed, 07/10/24 12:01:00 EST ?Order Comment:?? Home Health Face to Face ^[email or web address] Results Discharge Labs BLOOD COUNT & DIFF WBC 8.9 k/mm3 ()?? 07/10/2024 01:05 RBC 3.62 m/mm3 (Low)?? 07/10/2024 01:05 Hgb 11.1 Gm/dL (Low)?? 07/10/2024 01:05 Hct 33.6 % (Low)?? 07/10/2024 01:05 MCV 92.8 femtoliters ()?? 07/10/2024 01:05 MCH 30.7 pg ()?? 07/10/2024 01:05 MCHC 33.0 Gm/dL ()?? 07/10/2024 01:05 Platelet Count 152 k/mm3 ()?? 07/10/2024 01:05 RDW-SD 43.8 femtoliters ()?? 07/10/2024 01:05 MPV 9.6 femtoliters ()?? 07/10/2024 01:05 Nucleated RBC (Automated) 0.0 #/100 WBC'S ()?? 07/10/2024 01:05 Abs. NRBC 0.0 k/mm3 ()?? 07/10/2024 01:05 Abs. Neut 6.0 k/mm3 ()?? 07/09/2024 08:55 Abs. Lymph 1.3 k/mm3 ()?? 07/09/2024 08:55 Abs. Madison 0.7 k/mm3 ()?? 07/09/2024 08:55 Abs. Eo 0.1 k/mm3 ()?? 07/09/2024 08:55 Abs. Baso 0.0 k/mm3 ()?? 07/09/2024 08:55 Neut % 73.6 % ()?? 07/09/2024 08:55 Lymph % 16.1 % ()?? 07/09/2024 08:55 Madison % 8.1 % ()?? 07/09/2024 08:55 Eos % 1.5 % ()?? 07/09/2024 08:55 Baso % 0.2 % ()?? 07/09/2024 08:55 Imm Gran 0.5 % ()?? 07/09/2024 08:55 Abs. Imm Gran 0.0 k/mm3 ()?? 07/09/2024 08:55 ?? CARDIAC Nt-Probnp 195 pg/mL ()?? 07/09/2024 09:00 High Sensitivity Troponin (HSTnT) 103 ng/L (Critical)?? 07/09/2024 11:31 ?? CHEM GENERAL Sodium 136 mmol/L ()?? 07/10/2024 01:05 Potassium 4.4 mmol/L ()?? 07/10/2024 01:05 Chloride 101 mmol/L ()?? 07/10/2024 01:05 Bicarbonate Level 21 mmol/L (Low)?? 07/10/2024 01:05 Anion Gap 14 ()?? 07/10/2024 01:05 Glucose Level 112 mg/dL (High)?? 07/10/2024 01:05 Glucose, POC 123 mg/dL (High)?? 07/10/2024 11:02 BUN 23 mg/dL ()?? 07/10/2024 01:05 Creatinine-Blood 0.72 mg/dL ()?? 07/10/2024 01:05 Estimated GFR Creatinine 91 ML/MIN/1.73 M2 ()?? 07/10/2024 01:05 Calcium 9.0 mg/dL ()?? 07/09/2024 09:00 ? COAG INR 1.0 ()?? 07/09/2024 08:55 Protime (PT) 10.9 seconds ()?? 07/09/2024 08:55 D-Dimer 3.72 mg/L FEU (High)?? 07/09/2024 08:55 ? ENDOCRINE/TUMOR MARKER TSH 2.08 uIU/mL ()?? 07/09/2024 09:00 ? URINE OTHER Est Creatinine Clearance 72.50 mL/min ()?? 07/10/2024 02:25 ? VIROLOGY COVID-19 by RT-PCR NEGATIVE ()?? 07/09/2024 08:55 ? Blood Glucose Trend Glucose Level:??112 mg/dL??High (07/10/24 01:05:00) Glucose, POC:??123 mg/dL??High (07/10/24 11:02:00) Glucose, POC:??131 mg/dL??High (07/10/24 05:52:00) ? Microbiology ?? COVID-19 (Novel Coronavirus), Rapid PCR?? Completed?? Source: Nasal Body Site: Nose Collected Dt/Tm: 07/09/2024 08:50 Last Updated Dt/Tm: 07/09/2024 10:35 ? 40??minutes spent on discharge * Bozena German RN: PERFORM Event Display: Patient Education/Instruction Authored Date: Inpatient Adult Discharge Instructions. [address] [address] Name: MARLENA SPRINGER : 1940?? Visit: 07/09/2024 08:38?? Current Date: 07/10/2024 12:22 ?? Account: [id number]?? Inpatient Adult Discharge Instructions We would like [...] and their families. Surveys are administered by [email or web address] ?? If further treatment with your primary care physician or another doctor is recommended, it is important for you to keep the appointment. Call your primary care physician or return to the Emergency Department immediately if your condition worsens, fails to improve, or new symptoms develop. If you need to find a doctor, you can call [facility] [employer] Link for a referral at [phone] or toll free at [phone] ([phone]) or log in to [email or web address].. ?? [facility], in keeping with [facility] guidance, no longer requires face masks for [...] a health care lindsay of your choosing. [employer] is a website that allows you to securely view your medical information including your hospital discharge summary, office visit summaries, medications and follow-up visits. You can also request appointments, renew medications, and request access to your medical information using a health care lindsay of your choosing, or just ask a question. You can enroll at [email or web address] or register during your next office visit. You have been discharged from [facility], Patient Care Unit: D3B??. If you have any questions regarding these instructions, including results of studies pending, afteryou leave, please call us and we will be happy to assist you 02/03. [facility] Your Care Team Attending Physician Rachid Randolph MD?? Consulting Providers Rachid Randolph MD?? Discharging Providers Rachid Randolph MD Reason for Your Visit swyncope x2 with headstrike, from home, heart valve surgery on thursday, groin access site. A/O x3. blood from nose.no thinners.?? Your Diagnosis Hypertension S/P TAVR (transcatheter aortic valve replacement) Tests Performed Below is a partial list of the tests performed during your hospitalization. You may have had other tests and procedures not included in this list. Please discuss all test results with your provider. Basic Metabolic Panel BUN CBC CBC w/ Differential COVID-19 (Novel Coronavirus), Rapid PCR Creatinine D Dimer Electrolytes Glucose Level GLUCOSE POC High Sensitivity Troponin T INR ProBNP Troponin T, High Sensitivity TSH with T4 Reflex (Adults Only) CT Abd/Pelvis W/ IV Contrast Only CT Angio Chest CT Cervical Spine W/O Contrast CT Head/Brain W/O Contrast XR Chest 2 Views Frontal and Lat B Type Natriuretic Peptide (ProBNP)?? BUN?? Basic Metabolic Panel?? CBC?? CBC w/ Differential?? COVID-19 (Novel Coronavirus), Rapid PCR?? CT Abd/Pelvis W/ IV Contrast Only?? CT Angio Chest?? CT Cervical Spine W/O Contrast?? CT Head/Brain W/O Contrast?? Creatinine?? D Dimer?? Electrolytes?? Glucose Level?? Glucose POC?? High??Sensitivity??Troponin T (Troponin T, High Sensitivity)?? Hold Lavender Tube (BB)?? INR?? TSH with T4 Reflex (Adults Only)?? Chest 2 Views Frontal and Lat (XR Chest 2 Views Frontal and Lat)?? Primary Care Provider Nish Lin? Advance Directive Health Care Proxy on File No Discharge Vitals Temperature: 98.3 DegF Height: 170 cm Pulse Rate:??96 bpm??High Weight: 88 kg Respiratory Rate: 16 br/min Body Mass Index:??30.45 kg/m2??Critical Systolic Blood Pressure: 131 mm Hg Body surface area: 2.04 Diastolic Blood Pressure: 61 mm Hg ?? Oxygen Saturation: 97 % ?? Studies Pending All studies ordered during this hospital stay have been completed unless listed below. Please discuss all pending results with your provider listed above in these instructions. ?? Hold Lavender Tube (BB)?? What to do next Instructions From Your Doctor Please make an appointment to follow up with your PCP after discharge. The change management facilitator will follow up with your for a loop monitor as an outpatient. Your metoprolol has been discontinued for now. If you notice that your heart rates are persistently above 90, you may resume the medication. Take all medications as previously prescribed, and return to the ER if you experience worsening symptoms Please ensure you drink plenty of water to avoid dehydration. ?? Orders? 07/10/24 12:01:00 EST?? Prescriptions??, ??07/10/24 12:01:00 EST?? You Need to Schedule the Following Appointments Follow Up with??Nish Lin When:??Within 1 week: call to discuss follow up visit Where: [address] [place] [address] [place] [address]- Discharge Medications GIANMARLENA :1940 Visit Date:07/09/2024 Medications: Please continue your medications until treatment is completed or stopped by your provider. Medications not listed below should be discontinued. Discuss any questions related to medications with your provider. What How Much When Instructions Next Dose Unchanged Aspirin 81 Milligram Oral Daily 07/11/24 am Unchanged Atorvastatin (atorvastatin 40 mg oral tablet) 1 tab(s) Oral Daily 07/11/24 am Unchanged Omeprazole (omeprazole 20 mg oral enteric coated capsule) 1 capsule Oral Daily Duration: 90 Days 07/11/24 am Unchanged Paroxetine (Paxil 40 mg oral tablet) 1 tab(s) Oral Daily 07/11/24 am ?? What How Much When Comments Stop Taking Metoprolol (metoprolol 25 mg oral tablet, extended release) 1 tab(s) Oral Daily Prescription Given During Visit No new medications prescribed at time of discharge.?? Laboratory Results Below is a partial list of the most recent Laboratory test results done prior to this discharge. You may have had other tests and procedures not included in this list. Please discuss all test resultswith your provider. Est Creatinine Clearance - 72.50 mL/min (07/10/2024) Basic Metabolic Panel (07/09/2024) ???Sodium - 138 mmol/L???Potassium - 4.1 mmol/L???Chloride - 103 mmol/L???Bicarbonate Level - 21 mmol/L???Anion Gap - 14???Glucose Level - 166 mg/dL???BUN - 21 mg/dL???Creatinine-Blood - 0.64 mg/dL???Estimated GFR Creatinine - 94 ML/MIN/1.73 M2???Calcium - 9.0 mg/dL BUN (07/10/2024) ???BUN - 23 mg/dL CBC (07/10/2024) ???WBC - 8.9 k/mm3???RBC - 3.62 m/mm3???Hgb - 11.1 Gm/dL???Hct - 33.6 %???MCV - 92.8 femtoliters???MCH - 30.7 pg???MCHC - 33.0 Gm/dL???Platelet Count - 152 k/mm3???RDW-SD - 43.8 femtoliters???MPV - 9.6 femtoliters???Nucleated RBC (Automated) - 0.0 #/100 WBC'S???Abs. NRBC - 0.0 k/mm3 CBC w/ Differential (07/09/2024) ???WBC - 8.1 k/mm3???RBC - 3.86 m/mm3???Hgb - 11.7 Gm/dL???Hct - 35.0 %???MCV - 90.7 femtoliters???MCH - 30.3 pg???MCHC - 33.4 Gm/dL???Platelet Count - 134 k/mm3???RDW-SD - 41.7 femtoliters???MPV - 9.4 femtoliters???Nucleated RBC (Automated) - 0.0 #/100 WBC'S???Abs. NRBC - 0.0 k/mm3???Abs. Neut - 6.0 k/mm3???Abs. Lymph - 1.3 k/mm3???Abs. [place] - 0.7 k/mm3???Abs. Eo - 0.1 k/mm3???Abs. Baso - 0.0 k/mm3???Neut % - 73.6 %???Lymph % - 16.1 %???[place] % - 8.1 %???Eos % - 1.5 %???Baso % - 0.2 %???Imm Gran - 0.5 %???Abs. Imm Gran - 0.0 k/mm3 COVID-19 (Novel Coronavirus), Rapid PCR (07/09/2024) ???COVID-19 by RT-PCR - NEGATIVE Creatinine (07/10/2024) ???Creatinine-Blood - 0.72 mg/dL???Estimated GFR Creatinine - 91 ML/MIN/1.73 M2 D Dimer (07/09/2024) ???D-Dimer - 3.72 mg/L FEU Electrolytes (07/10/2024) ???Sodium - 136 mmol/L???Potassium - 4.4 mmol/L???Chloride - 101 mmol/L???Bicarbonate Level - 21 mmol/L???Anion Gap - 14 Glucose Level (07/10/2024) ???Glucose Level - 112 mg/dL GLUCOSE POC (07/10/2024) ???Glucose, POC - 123 mg/dL High Sensitivity Troponin T (07/09/2024) ???High Sensitivity Troponin (HSTnT) - 104 ng/L INR (07/09/2024) ???INR - 1.0???Protime (PT) - 10.9 seconds ProBNP (07/09/2024) ???Nt-Probnp - 195 pg/mL Troponin T, High Sensitivity (07/09/2024) ???High Sensitivity Troponin (HSTnT) - 103 ng/L TSH with T4 Reflex (Adults Only) (07/09/2024) ???TSH - 2.08 uIU/mL You will be contacted within 72 hours with your results. Allergies (NKA means No Known Allergies) NKA Problems Active Problems??(9) Anxiety?? Aortic stenosis, severe?? Gastro-esophageal reflux disease?? Glucose intolerance?? Hyperlipidemia?? Non-bacterial prostatitis?? Obese class I?? Tendonitis ??calcific/bursitis of left shoulder?? Vasectomy?? Education Materials Below is the list of Educational Leaflet Providered with your Discharge Instructions. Valuables and Belongings I fully understand and agree that [facility] accepts no responsibility for all my personal [...] to send valuables and belongings home. ?? Review of Valuable and Belonging List: With patient Date for Pt to Sign Valuables/Belongings: 07/09/24 09:24:00 ?? Other Discharge Information ? Pulmonary Rehab Status?? Pulmonary Rehab Discharge Status?? Respiratory Rate: 16 br/min ? Common Emergency Awareness Tips IS [...] are strongly encouraged to quit. Please call [facility] [employer] Link at [phone] or [phone] ([phone]) or log in to [email or web address] for referrals to smoking cessation programs. ?? 544 Suicide & Crisis Lifeline is available 02/03 if you or someone you know needs to find a reason to keep living. By calling 373 you'll be connected to a skilled, trained counselor at a crisis center in your area. INPATIENT DISCHARGE INSTRUCTIONS SIGNATURE RUBENS SPRINGER MARLENA Location:[facility] Registration Date and Time:07/09/2024 08:38 EST Primary Care Physician: Nish Lin, Attending Physician: Rachid Randolph MD, I MARLENA SPRINGER, have received the above patient education materials/instructions and have verbalized understanding. If ambulance or transport services are being used I further acknowledge being given a choice of service. ?? If you need to contact me, please call me at this number: . Patient/Congressional Representative Name: Patient/Congressional Representative Signature: Relationship to Patient: Witness Name/Signature: Date: Bozena Spear RN: PERFORM Event Display: Patient Education Leaflets Authored Date: About Arrhythmias ?? [id number] About Arrhythmias Your heart beats about 60 to 100 times a minute while at rest. Each beat sends blood through the heart and out to your body. An arrhythmia is a change from the normal speed or pattern of your pulse. Your heart may beat too fast, too slow, or unsteadily. Symptoms of arrhythmias Arrhythmias affect different people in different ways. And arrhythmias can cause different symptoms. Sometimes you may not have symptoms, but you just notice a change in your pulse. Symptoms can include: ??? Palpitations. This is the sense that your heart is fluttering or beating fast or hard or irregularly. ??? Shortness of breath. ??? Chest pain or pressure. ??? Neck fullness. ??? Feeling lightheaded or dizzy, or fainting. ??? Feeling tired, fatigued, or weak. ??? Cardiac arrest, and , in serious arrhythmias. ?? Causes of arrhythmias Arrhythmias can be caused by heart disease, such as: ??? Coronary artery disease ( blocked arteries ). ??? Heart valve disease. ??? Enlarged heart. ??? High blood pressure. ??? Heart failure. Other causes include: ??? Older age (most common). ??? Some medicines, such as asthma inhalers and decongestants. ??? Some herbal supplements. ??? Drugs and medicines that stimulate the heart. These include cocaine, amphetamines, diet pills, some decongestant cold medicines, caffeine, and nicotine. ??? Heavy use of alcohol. ??? Anxiety and panic disorder. ??? Thyroid disease. ??? Anemia. ??? Diabetes. ??? Sleep apnea.??? Obesity. ??? Heart disease since (congenital). ??? Heart diseases passed down through families. ??? Electrolyte imbalance. Electrolytes are substances that help regulate normal heartbeat. High or low levels of certain electrolytes such as potassium or magnesium may lead to arrhythmia. Some arrhythmias can be prevented. The cause and type of arrhythmia determines the best treatment. Your health care provider may want to track your heart rate over 24 hours or longer. This can help find the cause of your arrhythmia and the best treatment. Your provider may use a Holter monitor. This is??a portable recording device attached to your chest. Or you may get an event monitor, which records heart rhythms. You can carry this with you as you go about your daily routine. Some of these monitors can record your heart rhythm for up to 4 weeks. You may also have an implantable loop recorder. This can record your heart rhythm for up to 5 years. This tiny device goes under the skin over your heart. ?? Home care To help you care for yourself at home: ??? Stay away from heart stimulants. These include cocaine, amphetamine, diet pills, some decongestant cold medicines, caffeine, and nicotine. ??? Do not smoke.If you need help quitting, talk to your health care provider. ??? Tell your provider about any medicines you take. These may be affecting your heart rhythm. ?? Follow-up care Follow up with your provider. If you're getting a Holter monitor, contact the doctor??as soon as you can??to pick out hand the device. You may have other tests at that time. ?? Call 911 Calling 911 is the fastest and safest way to get to the emergency room. The paramedics can start treatment on the way to the hospital, if needed. Don't??wait until your symptoms are severe to call 911. Call 911 if: ??? You have chest pain that spreads to your shoulder, arm, neck, or back. ??? You areshort of breath. ??? You feel lightheaded, faint, or dizzy. ??? You have unexplained fainting. ??? Your heartbeat is faster or slower than normal. ??? Your heartbeat is very irregular. ??? You have chest pain with weakness, dizziness, heavy sweating, nausea, or vomiting. ??? You feel extremely drowsy or confused. ??? You have weakness in an arm or leg or one side of your face. ??? You have trouble with speech or vision. ?? When to get medical advice ??? Get help for chest pain or if something feels off, even if your symptoms are mild. ??? Don't drive yourself. Have someone else drive. If no one can drive you, call 911. ??? If your provider gave you medicines to take when you have symptoms, take them, but don't delay getting help while trying to find them. ?? Last Reviewed Date: 2024 ?? [id number] [employer]. All rights reserved. This information is not intended as a substitute for professional medical care. Always follow your healthcare professional's instructions. ?? * Bozena German RN: PERFORM Event Display: Patient Education Leaflets Authored Date: [id number] Diagnosing Syncope ?? 73620 Diagnosing Syncope Syncope is when you suddenly faint or pass out (lose consciousness). It's caused by not getting enough blood flow to the brain. Syncope can have many causes. Some of them aren't serious, but others may be life-threatening. Your healthcare provider will ask you about your fainting episode and your past health. They'll also do an exam. You may need a number of tests to assess your symptoms. Health history and exam You may be asked about: ??? Where and when you fainted ??? How long you weren't awake and aware (unconscious) ??? How you felt just before and right after you fainted ??? How you feel when you do moderate to heavy exercise ??? If you have a family history of heart disease or fainting ??? If you have a heart or neurological problem ??? What medicines you're taking ??? If you drink alcohol ??? If you use illegal drugs Your healthcare provider will examine you and may: ??? Check your blood pressure while lying down, sitting, and standing? Listen for any heart murmurs or abnormal heartbeats ??? Listen and feel the pulses in your neck ??? Examine your eyes, reflexes, and limb movement ?? Tests Holter monitor You may need??one of more of the following tests: ??? Electrocardiogram (ECG). This test can help find a slow, fast, or irregular heartbeat. ??? Holter monitoring. You wear a portable ECG monitor for 24 to 48 hours. It records your heartbeat and looks for any problems. ??? Event monitoring.??You wear a portable ECG monitor for several weeks. Like a Holter monitor, it records your heartbeat and looks for any problems. ??? Implantable loop recorder. This is a small heart monitor that's inserted over the heart under the skin. It's used for long-term heart rhythm recordings, usually up to 3 to 4 years. ??? Echocardiogram. This test takes pictures of your heart with ultrasound. It can show heart valve or heart function problems. It can also show damage from a heart attack. ??? Electrophysiology studies (EPS). These help find weak, damaged, oroveractive electrical pathways that make your heart beat too fast or slow. They can find the cause of a heart rate or rhythm problem. They can also help your healthcare provider decide how to treat it. ??? Tilt table testing. This testing helps show if changes in your body position affect your heart rate and blood pressure. ??? Carotid artery ultrasound. This test shows the blood flow through thearteries in the neck that supply oxygen and circulation to your brain. It can find any blockages inthese arteries. ??? MRI or CT scan of the neck and brain. These tests see if there is something else going on in the brain that is causing a loss of consciousness. They scan the blood flow and brain structures. They are done in a radiology department. ??? Blood and other lab tests. These tests are used to find any problems in your body that may cause syncope. For example, low blood sugar can cause a loss of consciousness. It may be mistaken for syncope. Other wastes and toxins, and even dehydration, can affect brain function and consciousness. ??? Electroencephalogram (EEG). If your healthcare provider thinks you may be having seizures instead of syncope, this test may be done. Electrodes are put on your scalp. They measure the activity of the brain. A neurologist who specializes in reading EEGs studies the results. You may need to see other specialists to fully assess the cause of your syncope. For instance, you may see a change management facilitator or a neurologist.. Treatment will be based on the cause of your syncope. Ask your healthcare provider how you'll get the test results and what steps must be taken. One of the concerns with syncope is being injured if you faint. Finding a cause for syncope can help keep you safe from injury. Don't drive a car, use heavy machinery, or do activities that may result in injury if you were to faint. Ask your provider when it's safe to do these activities again. ?? Last Reviewed Date: 2023 ?? [employer]. All rights reserved. This information is not intended as a substitute for professional medical care. Always follow your healthcare professional's instructions. ?? * Bozena German RN: PERFORM Event Display: Patient Education Leaflets Authored Date: [id number] Loop Recorder Implantation ?? 56189 Loop Recorder Implantation An implantable loop recorder (ILR) is a device that records information about your heart rhythm. It's used for people who have symptoms of heart arrhythmias that occur infrequently. During implantation, a small device is inserted under the skin to the left of your sternum over your heart.??The device works as an ongoing electrocardiogram (ECG). It constantly picks up electrical signals from your heart and stores the information for later review. An ILR records for up to 3 to 4 years. What to tell your healthcare provider Tell your healthcare provider about all the medicines you take, especially any blood thinners. Thisincludes [id number] medicines like ibuprofen. It also includes vitamins, herbs, minerals, andother supplements,??and any illegal drug use. Tell your healthcare provider if you: ??? Have had any recent changes in your health, such as an infection or fever ??? Are sensitive or allergic to any medicines, latex, tape, or anesthesia (local and general) ??? Are or think you may be ?? Tests before your procedure Before your loop recorder implantation, you may need an electrocardiogram (ECG). During this test, sticky pads called electrodes will be put on your chest. Wires will be attached to the pads. These wires lead to a machine. The machine measures your heart???s electrical activity for a short period of time. ?? Getting ready for a loop recorder implantation Talk with your healthcare provider about how to get ready for your procedure. You may need to stop taking some medicines before the procedure, such as blood thinners and aspirin. Also, make sure to: ??? Follow any directions you're given for not eating or drinking before your surgery. ??? Follow all other instructions from your healthcare provider. You will be asked to sign a consent form that gives your permission to do the procedure. Read the form carefully. Ask questions if something is not clear. ?? During your procedure Ask your healthcare provider about what to expect during your procedure. A typical procedure goes like this: ??? The skin over the heart area will be cleaned and may need to be shaved. ??? The healthcare provider will inject local anesthesia medicine into your skin to numb it. ??? The healthcare provider will make a small unruly??in your skin. This is usually done in the left upper chest, over the heart. ??? The healthcare provider will insert the loop recorder underneath the skin through the skin unruly. The machine is about the size of a flat AAA battery. ??? The healthcare provider will close the unruly with either glue or stitches.??They will put a bandage on the area. ?? After your procedure You will be shown how to use the symptom activator, if you need one. The symptom activator is used to turn on device recording to relate the symptoms you feel with what is happening in your heart at that time. You will likely be able to go home the day of the procedure.. You can take pain medicine if you need it. Talk with your healthcare provider about what???s best to take. You can go back to your normal activities as soon as you feel able. Don't get the incision wet until your healthcare provider says it's OK.??Don't do any vigorous exercise until your provider gives you approval to do so. ?? Follow-up care Tell your change management facilitator if another healthcare provider wants you to get an MRI test. An MRI may cause your ILR to display a false reading. The battery on the loop recorder typically last 3 to 4 years. When you no longer need it, you will need to have the device removed in a similar procedure. ?? When to call your healthcare provider Call your provider right away if any of these occur: ??? Bleeding or swelling at the insertion site ??? Redness, swelling, fluid leaking, or warmth at the incision site ??? Fever of 100.4??F (38??C) or higher, or as directed by your provider ??? Pain around your loop recorder ??? Dizziness Call 911 Call 911 if any of these occur: ??? Chest pain ??? Fainting spells ??? Rapid pulse or pounding heartbeat ??? Shortness of breath ?? Last Reviewed Date: 2024 ?? [id number] [employer]. All rights reserved. This information is not intended as a substitute for professional medical care. Always follow your healthcare professional's instructions. ?? Patient Care team information Care Team Personnel Name: Roselyn Colbert RN Position: S RN Member Role: Primary Care Nurse Name: Lexx Alcantar RN Position: S RN Member Role: Primary Care Nurse Name: Nish Lin Position: Reference Physician Member Role: PCP Address: [address] [place] [address] Telecom: Name: Elizabeth Julian RN Position: S RN Member Role: Primary Care Nurse Care Team Related Persons Name: SLY SPRINGER Insurance Providers Guarantor name: MARLENA SPRINGER Health Plan Information #: 1 Payer: [facility] [employer] Member Number: [id number] Policy Number: NA Group Number: [id number] Health Plan Information #: 2 Payer: [facility] [employer] Member Number: [id number] Policy Number: NA Group Number: [id number]
--- OUTSIDE RECORDS SUMMARY | 2024-07-22 10:53 | XMS_ITS | Continuity of Care Document ---
Author Organization [facility] Address [address] [place] [place] [address] Phone Care Team Providers Care Non Licensed Nuclear Equipment Operator Name Role Phone Callie Cox Unavailable Unavailable Allergies, Adverse Reactions, Alerts Substance Reaction Status Criticality No Known Allergies Active No Inform ation Medications Medication Instructions Dosage Effective Dates (start - stop) Status Comments LISINOPRIL (unknown strength) take 1 tablet by oral route every day Not Available - Active ALLOPURINOL (unknown strength) take 1 tablet by oral route every day Not Available - Active amoxicillin 500 mg capsule take 1 capsule by oral route every 12 hours for 14 days - No Longer Active Procedures Procedure Date OFFICE/OUTPATIENT VISIT, NEW Advance Directives Directive Yes / No Effective Date File Name No Information Encounters Encounter Description Practice Location Reason(s) For Visit Diagnoses Date Provider Providers Copied on Encounter OFFICE/OUTPAT IENT VISIT, NEW [facility], [address] [facility] [place], [id number], [place] tel:[phone] [facility] Tick Bite (chief complaint) Insect bite (nonvenomo [place]), right thigh, initial encounter [address]. [address] [place], [address], [place]. tel:[phone] Referring Provider: Callie Rae, [address] [place], [address]. tel:[phone] Family History Family Member Type Diagnosis Age At Onset No Information Payers Payer name Insurance type Covered constitution party ID Authoriza tion(s) Medicare [id number] AARP SUPPLEMENT [id number] Social History Type Description Quantity Date Captured Comments Alcohol Use Details 3 drinks occasionally Caffeine Use Details Unknown Tobacco Use Status No Information Smoking Status Former smoker Non-Smoking Tobacco Use Details : No Details Available : No Details Available Sex Male Vital Signs Date / Time: Height Weight BMI Pulse Rate Blood Pressure Temperature Respiratory Rate Body Surface Area Head Circumference Head Circ. Percentile Wt./Chris. Percentile BMI percentile Pulse Ox Inhaled Ox 9:35 AM 69.00 in 90.537 kg (199.60 lbs) 29.4 8 kg/m eter (2) 108 /min 112/58 mm[Hg] 97.80 F 18 /min 97 % 21 % Chief Complaint And Reason For Visit From encounter dated '01/06/2024 08:15'. Tick Bite (chief complaint). Description: The symptoms began 5 days ago. The location is Right Upper Thigh, Medial. Patient presents to today with complaint of a tick bite that is not healing. Patient states he removed a tick from his upper inner Right thigh on Thursday and that it developing a round red area around it. Patient also states that he's not feeling well, feels a bit off . Reason For Referral Reason For Referral No Information Plan Of Treatment Date Type Action Status Goal Zoster vaccine (). Due on due Goal Depression screening. Due on due Goal Influenza vaccine. Due on due Goal Td vaccine. Due on due Goal Pneumococcal vaccine. Due on due Goal Unhealthy drug use screening . Due on due Goal DEXA Scan. Due on due Goal Tdap. Due on due History Of Present Illness Encounter Date Complaint History Of Prese nt Illness Tick Bite The symptoms beg an 5 days ago. The location is Right Upper Thigh, Medial. Patient presents to today with complaint of a tick bite that is not healing. Patient states he removed a tick from his upper inner Right thigh on Thursday and that it developing a round red area around it. Patient also states that he's not feeling well, feels a bit off . Functional Status Date Functional Assessmen t Pain Score 0/10 Instructions Date Instruction Additional Infor jose -- Take antibiotic a s directed -- May antihistamine for itching-- May use tylenol or motrin as needed for pain control -- All of patient's questions were answered. Encouraged patient to call with questions or concerns. Patient verbalized understanding of instructions. Related to Insect bite (nonvenomous), right thigh, initial encounter Assessments Type Assessment Date assessment Insect bite (nonvenomous), right thigh, initial encounter impression 83-year-old male pre sents for itching, redness to right medial proximal thigh 4 days. Patient states he removed a tick from the area approximately 6 days ago. Patient states he was able to remove the tick in its entirety. Patient states feels the site is starting to appear as a bull's-eye. He denies the site being painful. Denies any use of OTC medications. He denies flulike symptoms. He denies of fever, chills, sweats, cough, shortness of breath, fatigue, nausea, vomiting, or diarrhea. Denies recent use of antibiotics. Denies known drug allergies. Past medical history includes hypertension.Physical exam reveals 1.5 cm x 1.5 cm erythema surrounding site where patient removed tick. Heart rate is 108 bpm and regular. Remainder of exam is within normal limits. The area does not appear to have a bull's-eye appearance. Will treat patient for tickborne illness with amoxicillin for 14 days. Offered to draw labs for tickborne illnesses, however patient declines. Discussed with patient to start daily antihistamine for itching. May apply cool compress to site 4-5 times daily for 10 to 15 minutes. Recommended Tylenol or Motrin as needed for pain control. If symptoms persist or new or concerning symptoms arise return to clinic. Patient verbalized understanding. Mental Status Date Cognitive Assessment Orientation - Langley ed to time, place, person, situation. Patient Care Teams Name Effective Dates (start - stop) Status Members No Information
--- OUTSIDE RECORDS SUMMARY | 2024-07-22 10:53 | XMS_ITS | Continuity of Care Document ---
Author Organization [facility] Address [address] [facility] [place] [address] Phone Care Team Providers Care Painting Department Supervisor Name Role Phone Jonh WOODS, Dilip Unavailable Unavailabl e Advance Directives Directive Yes / No Effective Date File Name No Information Encounters Encounter Description Practice Location Reason(s) For Visit Diagnoses Date Provider Providers Copied on Encounter [facility], [address], [place], [place], [id number], [place] tel:[phone] [facility] No Information Jonh Cherry. [address], [place], [place], [id number], [place]. tel:[phone] Family History Family Member Type Diagnosis Age At Onset No Information Payers Payer name Insurance type Covered republican ID Authoriza tion(s) No Information Social History Type Description Quantity Date Captured Comments Sex Male Smoking Status No Information Chief Complaint And Reason For Visit No Information Reason For Referral Reason For Referral No Information History Of Present Illness Encounter Date Complaint History Of Prese nt Illness No Information Functional Status Date Functional Assessmen t No Information Instructions Date Instruction Additional Infor mation No Information Assessments Type Assessment Date No Information Patient Care Teams Name Effective Dates (start - stop) Status Members No Information
--- OUTSIDE RECORDS SUMMARY | 2024-07-22 10:53 | XMS_ITS | Continuity of Care Document ---
Author Organization [facility] Address [address] [place] [address] Care Team Providers Care Seed Pelleter Name Role Phone Nish Lin Primary Care Physician ( [phone] Encounter [facility] [place] Date(s): 05/26/24 - 06/25/24 [facility] [address] [place] [address]- Encounter Type: Triage Allergies, Adverse Reactions, Alerts [...] Confirmed Active Obese class I Confirmed Active Tendonitis calcific/bursitis of left shoulder Confirmed Active Vasectomy Confirmed Active Social History Social History Type Response Smoking Status Never (less than 100 in lifetime) entered on: 05/20/24 Sex Sex Representation Male (finding) Patient Care team information Care Team Personnel Name: Nish Lin Position: Reference Physician Member Role: PCP Address: [address] [place] [address] [facility] [place], [place] [address] Telecom: Care Team Related Persons Name: SLY SPRINGER Insurance Providers Guarantor name: MARLENA SPRINGER Health Plan Information #: 1 Payer: [facility] [employer] Member Number: NA Policy Number: NA Group Number: NA
== END 2024-07-22 11:40 | disposition home or self-care (01) ==
PROVIDERS: Visit Provider Physician Assistant
DX: M79.18 Myalgia, other site (principal)

== ENCOUNTER → 2024-07-22 10:46 | Outpatient (BNVA) | payer OTHER, SELFPAY | PROVIDERS: Visit Provider Physician Assistant ==